=== PATIENT | male | born 1990 | race Caucasian/White ===

== ENCOUNTER 2018-01-10 08:40 | Emergency (ER) | payer OTHER ==
[2018-01-10] MEDS ORDERED: SODIUM CHLORIDE 0.9% 1,000 ML IV STA (09:23)
--- NOTE | 2018-01-10 09:47 | ED ---
Dizziness HPI - General Chief Complaint: Dizziness Stated Complaint: DIZZINESS, POSS HYPERTENSION Time Seen by Provider: 01/10/18 09:05 Source: patient, RN notes reviewed, old records reviewed Mode of arrival: wheelchair Limitations: no limitations - History of Present Illness Initial Comments: 19-year-old male presents emergency Department due to complaint of lightheaded feeling while he was at work today. He was concerned that maybe his blood pressure was elevated. He denies any headache. Denies any neck pain. No head injury or trauma. He reports no dizziness. Patient has had no chest pain or shortness of breath. No nausea or vomiting or diarrhea. Reports that she's been having some intermittent episodes with this lightheadedness. States his brain feels somewhat foggy. Denies any fevers or chills. - Related Data Home Medications Medication Instructions Recorded Confirmed No Known Home Medications [No 01/10/18 01/10/18 Known Home Medications] Allergies Allergy/AdvReac Type Severity Reaction Status Date / Time No Known Allergies Allergy Verified 01/10/18 09:09 Review of Systems ROS Statement: Those systems with pertinent positive or pertinent negative responses have been documented in the HPI. ROS Other: All systems not noted in ROS Statement are negative. Past Medical History Past Medical History: No Reported History History of Any Multi-Drug Resistant Organisms: None Reported Past Surgical History: No Surgical Hx Reported Past Psychological History: No Psychological Hx Reported Smoking Status: Never smoker Past Alcohol Use History: None Reported Past Drug Use History: None Reported General Exam - General Exam Comments Initial Comments: 27-year-old male. Alert and oriented. No acute distress. Limitations: no limitations General appearance: alert, in no apparent distress Head exam: Present: atraumatic, normocephalic, normal inspection Eye exam: Present: normal appearance, PERRL, EOMI. Absent: scleral icterus, conjunctival injection, periorbital swelling ENT exam: Present: normal exam, mucous membranes moist Neck exam: Present: normal inspection. Absent: tenderness, meningismus, lymphadenopathy Respiratory exam: Present: normal lung sounds bilaterally. Absent: respiratory distress, wheezes, rales, rhonchi, stridor Cardiovascular Exam: Present: regular rate, normal rhythm, normal heart sounds. Absent: systolic murmur, diastolic murmur, rubs, gallop, clicks GI/Abdominal exam: Present: soft, normal bowel sounds. Absent: distended, tenderness, guarding, rebound, rigid Extremities exam: Present: normal inspection, full ROM, normal capillary refill. Absent: tenderness, pedal edema, joint swelling, calf tenderness Back exam: Present: normal inspection Neurological exam: Present: alert, oriented X3, CN II-XII intact Psychiatric exam: Present: normal affect, normal mood Skin exam: Present: warm, dry, intact, normal color. Absent: rash Course Vital Signs 01/10/18 08:47 Temperature 98.2 F Pulse Rate 83 Respiratory 20 Rate Blood Pressure 139/76 O2 Sat by Pulse 100 Oximetry Medical Decision Making - Lab Data Result diagrams: 01/10/18 09:43 01/10/18 09:43 Lab Results 01/10/18 01/10/18 01/10/18 Range/Units 09:43 09:43 09:43 WBC 5.1 (3.8-10.6) k/uL RBC 5.04 (4.30-5.90) m/uL Hgb 15.3 (13.0-17.5) gm/dL Hct 44.0 (39.0-53.0) % MCV 87.4 (80.0-100.0) fL MCH 30.3 (25.0-35.0) pg MCHC 34.7 (31.0-37.0) g/dL RDW 12.5 (11.5-15.5) % Plt Count 326 (150-450) k/uL Neutrophils % 70 % Lymphocytes % 20 % Monocytes % 6 % Eosinophils % 2 % Basophils % 1 % Neutrophils # 3.6 (1.3-7.7) k/uL Lymphocytes # 1.0 (1.0-4.8) k/uL Monocytes # 0.3 (0-1.0) k/uL Eosinophils # 0.1 (0-0.7) k/uL Basophils # 0.0 (0-0.2) k/uL Sodium 143 (137-145) mmol/L Potassium 4.3 (3.5-5.1) mmol/L Chloride 103 (98-107) mmol/L Carbon Dioxide 28 (22-30) mmol/L Anion Gap 12 mmol/L BUN 16 (9-20) mg/dL Creatinine 0.81 (0.66-1.25) mg/dL Est GFR (CKD-EPI)AfAm >90 (>60 ml/min/1.73 sqM) Est GFR (CKD-EPI)NonAf >90 (>60 ml/min/1.73 sqM) Glucose 94 (74-99) mg/dL Calcium 9.4 (8.4-10.2) mg/dL Total Bilirubin 0.8 (0.2-1.3) mg/dL AST 33 (17-59) U/L ALT 57 (21-72) U/L Alkaline Phosphatase 75 (38-126) U/L Troponin I <0.012 (0.000-0.034) ng/mL Total Protein 7.0 (6.3-8.2) g/dL Albumin 4.5 (3.5-5.0) g/dL Urine Color Urine Appearance (Clear) Urine pH (5.0-8.0) Ur Specific Clements (1.001-1.035) Urine Protein (Negative) Urine Glucose (UA) (Negative) Urine Ketones (Negative) Urine Blood (Negative) Urine Nitrite (Negative) Urine Bilirubin (Negative) Urine Urobilinogen (<2.0) mg/dL Ur Leukocyte Esterase (Negative) 01/10/18 Range/Units 10:32 WBC (3.8-10.6) k/uL RBC (4.30-5.90) m/uL Hgb (13.0-17.5) gm/dL Hct (39.0-53.0) % MCV (80.0-100.0) fL MCH (25.0-35.0) pg MCHC (31.0-37.0) g/dL RDW (11.5-15.5) % Plt Count (150-450) k/uL Neutrophils % % Lymphocytes % % Monocytes % % Eosinophils % % Basophils % % Neutrophils # (1.3-7.7) k/uL Lymphocytes # (1.0-4.8) k/uL Monocytes # (0-1.0) k/uL Eosinophils # (0-0.7) k/uL Basophils # (0-0.2) k/uL Sodium (137-145) mmol/L Potassium (3.5-5.1) mmol/L Chloride (98-107) mmol/L Carbon Dioxide (22-30) mmol/L Anion Gap mmol/L BUN (9-20) mg/dL Creatinine (0.66-1.25) mg/dL Est GFR (CKD-EPI)AfAm (>60 ml/min/1.73 sqM) Est GFR (CKD-EPI)NonAf (>60 ml/min/1.73 sqM) Glucose (74-99) mg/dL Calcium (8.4-10.2) mg/dL Total Bilirubin (0.2-1.3) mg/dL AST (17-59) U/L ALT (21-72) U/L Alkaline Phosphatase (38-126) U/L Troponin I (0.000-0.034) ng/mL Total Protein (6.3-8.2) g/dL Albumin (3.5-5.0) g/dL Urine Color Yellow Urine Appearance Clear (Clear) Urine pH 7.5 (5.0-8.0) Ur Specific Clements 1.022 (1.001-1.035) Urine Protein Negative (Negative) Urine Glucose (UA) Negative (Negative) Urine Ketones Negative (Negative) Urine Blood Negative (Negative) Urine Nitrite Negative (Negative) Urine Bilirubin Negative (Negative) Urine Urobilinogen <2.0 (<2.0) mg/dL Ur Leukocyte Esterase Negative (Negative) 01/10/18 11:13 EKG performed at 952 shows normal sinus rhythm, normal EKG noted. Ventricular rate of 71 bpm. WA intervals 182. QRS duration 88. QT QTc is 370/410. Disposition Clinical Impression: Light-headed feeling Disposition: HOME SELF-CARE Condition: Good Instructions: Dizziness (ED) Additional Instructions: Patient has a follow-up with her primary care provider. Return to the emergency department if any alarming signs or symptoms occur. Is patient prescribed a controlled substance at d/c from ED?: No When asked, does pt state using other controlled substances?: No If prescribed controlled substance>3 days was MAPS reviewed?: No If opioid is for acute pain is fill amount 7 days or less?: No Referrals: Ericka Currie DO [Primary Care Provider] - 1-2 days Time of Disposition: 11:25
[2018-01-10 09:53] LABS: Basophils % (A) 1 %; Eosinophils # (A) 0.1 k/uL (0-0.7); Eosinophils % (A) 2 %; HGB 15.3 gm/dL (13.0-17.5); Lymphocytes % (A) 20 %; MCH 30.3 pg (25.0-35.0); MCHC 34.7 g/dL (31.0-37.0); MCV 87.4 fL (80.0-100.0); Mean Platelet Volume 6.4; Monocytes # (A) 0.3 k/uL (0-1.0); Monocytes % (A) 6 %; Neutrophils # (A) 3.6 k/uL (1.3-7.7); Neutrophils % (A) 70 %; Platelet Count 326 k/uL (150-450); RBC 5.04 m/uL (4.30-5.90); RDW 12.5 % (11.5-15.5); WBC 5.1 k/uL (3.8-10.6)
[2018-01-10 10:02] LABS: ALT 57 U/L (21-72); AST 33 U/L (17-59); Albumin 4.5 g/dL (3.5-5.0); Alkaline Phosphatase 75 U/L (38-126); Anion Gap 12 mmol/L; Blood Urea Nitrogen 16 mg/dL (9-20); Calcium 9.4 mg/dL (8.4-10.2); Carbon Dioxide 28 mmol/L (22-30); Chloride 103 mmol/L (98-107); Glucose 94 mg/dL (74-99); Potassium 4.3 mmol/L (3.5-5.1); Sodium 143 mmol/L (137-145); Total Bilirubin 0.8 mg/dL (0.2-1.3)
[2018-01-10 10:45] LABS: Appearance,Urine Clear (Clear); Bilirubin,Urine Negative (Negative); Blood,Urine Negative (Negative); Color,Urine Yellow; Glucose,Urine (UA) Negative (Negative); Ketones,Urine Negative (Negative); Leukocyte Esterase,Urine Negative (Negative); Nitrite,Urine Negative (Negative); PH, Urine 7.5 (5.0-8.0); Protein,Urine Negative (Negative); Specific Gravity,Urine 1.022 (1.001-1.035); Urobilinogen,Urine <2.0 mg/dL (<2.0)
[2018-01-10 11:39] VITALS: BP 138/76; PULSE 78; RESP 18; TEMP 98.5
== END 2018-01-10 11:39 | disposition home or self-care (01) ==
LOC: EC 08:40
DX: R42 Dizziness and giddiness (principal)
CPT/HCPCS: 36415; 80053; 81003; 84484; 85025; 93005; 96360; 99284

== ENCOUNTER 2018-01-23 18:11 | Emergency (ER) | payer OTHER ==
[2018-01-23] MEDS ORDERED: SODIUM CHLORIDE 0.9% 1,000 ML IV ONE (18:45)
--- NOTE | 2018-01-23 18:49 | ED ---
General Adult HPI - General Chief complaint: Skin/Abscess/Foreign Body Stated complaint: Facial numbness Time Seen by Provider: 01/23/18 18:27 Source: patient Mode of arrival: ambulatory Limitations: no limitations - History of Present Illness Initial comments: 27-year-old male patient presents to the emergency department today for evaluation of tingling to the dorsal aspect of left forearm and the left side of the face. Patient states that this started a few hours ago at work. Patient states that it has persisted. Patient states the tingling sensation and is less than it was never started. He denies any numbness or weakness. Denies any headache, dizziness, blurred vision, or double vision. Denies any history of similar symptoms. He denies any neck pain or stiffness. Denies any fevers or chills. States that he was recently ill with gastrointestinal symptoms his doctor told him is related to a virus. Patient states he has taken Benadryl both this morning and this afternoon due to some generalized itching. Patient denies any rash. Patient denies any other past medical history or use of medications. Patient denies any recent shortness breath, chest pain, abdominal pain, nausea, vomiting, diarrhea, constipation, back pain , hematuria, dysuria, urinary urgency, urinary frequency, or any other complaints. - Related Data Home Medications Medication Instructions Recorded Confirmed Aspirin EC [Ecotrin] 325 mg PO DAILY PRN 01/23/18 01/23/18 Multivitamins, Thera [Multivitamin 1 tab PO DAILY 01/23/18 01/23/18 (formulary)] diphenhydrAMINE HCL [Benadryl] 50 mg PO BID PRN 01/23/18 01/23/18 Allergies Allergy/AdvReac Type Severity Reaction Status Date / Time No Known Allergies Allergy Verified 01/23/18 18:30 Review of Systems ROS Statement: Those systems with pertinent positive or pertinent negative responses have been documented in the HPI. ROS Other: All systems not noted in ROS Statement are negative. Past Medical History Past Medical History: No Reported History History of Any Multi-Drug Resistant Organisms: None Reported Past Surgical History: No Surgical Hx Reported Past Psychological History: No Psychological Hx Reported Smoking Status: Never smoker Past Alcohol Use History: None Reported Past Drug Use History: None Reported General Exam Limitations: no limitations General appearance: alert, in no apparent distress, other (This is a well- developed, well-nourished adult male patient in no acute distress. Vital signs upon presentation are temperature 98.5F, pulse 79, respirations 16, blood pressure 135/78, pulse ox 98% on room air.) Eye exam: Present: normal appearance, PERRL, EOMI. Absent: scleral icterus, conjunctival injection, periorbital swelling ENT exam: Present: normal exam, normal oropharynx, mucous membranes moist Respiratory exam: Present: normal lung sounds bilaterally. Absent: respiratory distress, wheezes, rales, rhonchi, stridor Cardiovascular Exam: Present: regular rate, normal rhythm, normal heart sounds. Absent: systolic murmur, diastolic murmur, rubs, gallop, clicks GI/Abdominal exam: Present: soft, normal bowel sounds. Absent: distended, tenderness, guarding, rebound, rigid Neurological exam: Present: alert, oriented X3, CN II-XII intact Expanded Speech: Present: fluid speech Cranial nerves: EOM's Intact: Normal, Facial Sensation: Normal, Facial Palsy with Forehead Movement: Normal, Facial Palsy without Forehead Movement: Normal Motor strength exam: RUE: 5, LUE: 5, RLE: 5, LLE: 5 Eye Response: (4) open spontaneously Motor Response: (6) obeys commands Verbal Response: (5) oriented Macario Total: 15 Psychiatric exam: Present: normal affect, normal mood Skin exam: Present: warm, dry, intact, normal color. Absent: rash Course Vital Signs 01/23/18 01/23/18 18:21 21:00 Temperature 98.5 F 98.3 F Pulse Rate 79 77 Respiratory 16 18 Rate Blood Pressure 135/78 133/85 O2 Sat by Pulse 98 97 Oximetry Medical Decision Making - Medical Decision Making 27-year-old male patient presented to the emergency department today for evaluation of tingling to the dorsal aspect of the forearm and the left side of his face. Physical examination is unremarkable. Patient is neurologically intact. Labs reviewed and were unremarkable. Thyroid was normal. Electrolytes are normal. I did discuss findings and results with the patient. Upon reevaluation patient states that his symptoms have improved. He will be discharged home to follow-up with his primary care physician in one to 2 days. Return parameters discussed in detail. He verbalizes understanding and agrees with this plan. - Lab Data Result diagrams: 01/23/18 19:14 01/23/18 19:14 Lab Results 01/23/18 01/23/18 Range/Units 19:14 19:14 WBC 6.4 (3.8-10.6) k/uL RBC 4.81 (4.30-5.90) m/uL Hgb 14.5 (13.0-17.5) gm/dL Hct 41.8 (39.0-53.0) % MCV 87.0 (80.0-100.0) fL MCH 30.2 (25.0-35.0) pg MCHC 34.7 (31.0-37.0) g/dL RDW 12.5 (11.5-15.5) % Plt Count 328 (150-450) k/uL Neutrophils % 63 % Lymphocytes % 26 % Monocytes % 8 % Eosinophils % 1 % Basophils % 0 % Neutrophils # 4.0 (1.3-7.7) k/uL Lymphocytes # 1.7 (1.0-4.8) k/uL Monocytes # 0.5 (0-1.0) k/uL Eosinophils # 0.1 (0-0.7) k/uL Basophils # 0.0 (0-0.2) k/uL Sodium 141 (137-145) mmol/L Potassium 4.2 (3.5-5.1) mmol/L Chloride 103 (98-107) mmol/L Carbon Dioxide 24 (22-30) mmol/L Anion Gap 14 mmol/L BUN 14 (9-20) mg/dL Creatinine 0.79 (0.66-1.25) mg/dL Est GFR (CKD-EPI)AfAm >90 (>60 ml/min/1.73 sqM) Est GFR (CKD-EPI)NonAf >90 (>60 ml/min/1.73 sqM) Glucose 81 (74-99) mg/dL Calcium 9.7 (8.4-10.2) mg/dL Magnesium 2.0 (1.6-2.3) mg/dL Total Bilirubin 0.6 (0.2-1.3) mg/dL AST 31 (17-59) U/L ALT 50 (21-72) U/L Alkaline Phosphatase 69 (38-126) U/L Total Protein 7.1 (6.3-8.2) g/dL Albumin 4.7 (3.5-5.0) g/dL TSH 0.908 (0.465-4.680) mIU/L Disposition Clinical Impression: Paresthesia Disposition: HOME SELF-CARE Condition: Good Instructions: Paresthesia (ED) Additional Instructions: Follow-up with your primary care physician for recheck in 1-2 days. Return here immediately for any new, worsening, or concerning symptoms. Is patient prescribed a controlled substance at d/c from ED?: No Referrals: Ericka Currie DO [Primary Care Provider] - 1-2 days Time of Disposition: 20:45
[2018-01-23 19:28] LABS: Basophils % (A) 0 %; Eosinophils # (A) 0.1 k/uL (0-0.7); Eosinophils % (A) 1 %; HCT 41.8 % (39.0-53.0); HGB 14.5 gm/dL (13.0-17.5); Lymphocytes # (A) 1.7 k/uL (1.0-4.8); Lymphocytes % (A) 26 %; MCH 30.2 pg (25.0-35.0); MCHC 34.7 g/dL (31.0-37.0); Mean Platelet Volume 6.9; Monocytes # (A) 0.5 k/uL (0-1.0); Monocytes % (A) 8 %; Neutrophils % (A) 63 %; Platelet Count 328 k/uL (150-450); RBC 4.81 m/uL (4.30-5.90); RDW 12.5 % (11.5-15.5); WBC 6.4 k/uL (3.8-10.6)
[2018-01-23 19:43] LABS: ALT 50 U/L (21-72); AST 31 U/L (17-59); Albumin 4.7 g/dL (3.5-5.0); Alkaline Phosphatase 69 U/L (38-126); Anion Gap 14 mmol/L; Blood Urea Nitrogen 14 mg/dL (9-20); Calcium 9.7 mg/dL (8.4-10.2); Carbon Dioxide 24 mmol/L (22-30); Chloride 103 mmol/L (98-107); Glucose 81 mg/dL (74-99); Potassium 4.2 mmol/L (3.5-5.1); Sodium 141 mmol/L (137-145); Total Bilirubin 0.6 mg/dL (0.2-1.3); Total Protein 7.1 g/dL (6.3-8.2)
[2018-01-23 21:11] VITALS: BP 133/85; PULSE 77; RESP 18; TEMP 98.3
== END 2018-01-23 21:00 | disposition home or self-care (01) ==
LOC: EC 18:11
DX: R20.2 Paresthesia of skin (principal)
CPT/HCPCS: 36415; 80053; 83735; 84443; 85025; 96360; 99284

== ENCOUNTER 2018-01-25 00:27 | Emergency (ER) | payer OTHER ==
[2018-01-25 00:33] VITALS: RESP 16
[2018-01-25] MEDS ORDERED: LORazepam 1 MG TAB PO STA (01:35)
--- NOTE | 2018-01-25 01:38 | ED ---
General Adult HPI - General Chief complaint: Extremity Problem,Nontraumatic Stated complaint: Face and arm numbness Time Seen by Provider: 01/25/18 00:52 Source: patient, RN notes reviewed Mode of arrival: ambulatory Limitations: no limitations - History of Present Illness Initial comments: Patient is a pleasant 27-year-old male presenting to the emergency Department with complaints of paresthesias. Symptoms have been occurring for several days. Paresthesias involve the left side of the face and left arm. Patient does admit to having significant increased stress recently. Patient has increased stress at work. Patient requests to have a large amount of time off work. Patient states he felt like his note case were somewhat enlarged earlier today. No weakness or confusion. No headache. - Related Data Home Medications Medication Instructions Recorded Confirmed Aspirin EC [Ecotrin] 325 mg PO DAILY PRN 01/23/18 01/23/18 Multivitamins, Thera [Multivitamin 1 tab PO DAILY 01/23/18 01/23/18 (formulary)] diphenhydrAMINE HCL [Benadryl] 50 mg PO BID PRN 01/23/18 01/23/18 Allergies Allergy/AdvReac Type Severity Reaction Status Date / Time No Known Allergies Allergy Verified 01/25/18 00:33 Review of Systems ROS Statement: Those systems with pertinent positive or pertinent negative responses have been documented in the HPI. ROS Other: All systems not noted in ROS Statement are negative. Constitutional: Denies: fever Eyes: Denies: eye pain ENT: Denies: ear pain Respiratory: Denies: cough Cardiovascular: Denies: chest pain Endocrine: Denies: fatigue Gastrointestinal: Denies: abdominal pain Genitourinary: Denies: dysuria Musculoskeletal: Denies: back pain Skin: Denies: rash Neurological: Reports: weakness, paresthesias Past Medical History Past Medical History: No Reported History History of Any Multi-Drug Resistant Organisms: None Reported Past Surgical History: No Surgical Hx Reported Past Psychological History: No Psychological Hx Reported Smoking Status: Never smoker Past Alcohol Use History: None Reported Past Drug Use History: None Reported General Exam Limitations: no limitations General appearance: alert, in no apparent distress Head exam: Present: atraumatic Eye exam: Present: normal appearance, PERRL, EOMI. Absent: nystagmus ENT exam: Present: normal oropharynx Neck exam: Present: normal inspection Respiratory exam: Present: normal lung sounds bilaterally Cardiovascular Exam: Present: regular rate, normal rhythm GI/Abdominal exam: Present: soft. Absent: tenderness Extremities exam: Present: normal inspection, full ROM. Absent: tenderness Neurological exam: Present: alert, CN II-XII intact. Absent: motor sensory deficit Expanded Neurological exam: Present: protecting the airway Speech: Present: fluid speech Cranial nerves: EOM's Intact: Normal, Facial Sensation: Normal Sensory exam: Upper Extremity Light Touch: Normal, Lower Extremity Light Touch: Normal Motor strength exam: RUE: 5, LUE: 5, RLE: 5, LLE: 5 Eye Response: (4) open spontaneously Motor Response: (6) obeys commands Verbal Response: (5) oriented Psychiatric exam: Present: normal affect, normal mood Skin exam: Present: normal color Course Vital Signs 01/25/18 00:31 Temperature 98.4 F Pulse Rate 79 Respiratory 16 Rate Blood Pressure 138/83 O2 Sat by Pulse 98 Oximetry Medical Decision Making - Medical Decision Making Patient reevaluated and feels much better following Ativan. Patient updated on results and need for follow-up. - Radiology Data Radiology results: report reviewed (Computed tomography scan of the brain shows no acute process) Disposition Clinical Impression: Paresthesia Disposition: HOME SELF-CARE Condition: Stable Instructions: Paresthesia (ED) Additional Instructions: Please follow-up with primary care physician in the beginning of the week. Return for weakness, confusion, increased area of involvement, worsening or changing symptoms or other concerns. Is patient prescribed a controlled substance at d/c from ED?: No Referrals: Ericka Currie DO [Primary Care Provider] - 1-2 days Time of Disposition: 02:54
--- NOTE | 2018-01-25 02:07 | CT ---
EXAMINATION TYPE: CT brain wo con DATE OF EXAM: 01/25/2018 COMPARISON: NONE HISTORY: Left face and arm numbness CT DLP: 1108.40 mGycm. Automated Exposure Control for Dose Reduction was Utilized. TECHNIQUE: CT scan of the head is performed without contrast. FINDINGS: Ventricles of normal size. There is no mass effect nor midline shift. There is no sign of intracranial hemorrhage. Calvarium is intact. IMPRESSION: Negative CT scan of the brain.
[2018-01-25 03:03] VITALS: BP 129/73; PULSE 71; TEMP 97.9
== END 2018-01-25 03:03 | disposition home or self-care (01) ==
LOC: EC 00:27
DX: R20.2 Paresthesia of skin (principal); F43.9 Reaction to severe stress, unspecified
CPT/HCPCS: 70450; 99284

== ENCOUNTER → 2018-12-26 | Outpatient (CLI) | payer BC ==
--- NOTE | 2018-12-26 10:33 | US ---
EXAMINATION TYPE: US abdomen complete DATE OF EXAM: 12/26/2018 COMPARISON: NONE CLINICAL HISTORY: R10.13 Epigastric pain. EXAM MEASUREMENTS: Liver Length: 16.4 cm Gallbladder Wall: 0.2 cm CBD: 0.3 cm Spleen: 10.7 cm Right Kidney: 11.8 x 3.8 x 4.3 cm Left Kidney: 11.9 x 5.5 x 4.8 cm Pancreas: Obscured by bowel gas Liver: Coarse, heterogeneous echotexture Gallbladder: wnl Evidence for sonographic Rojas's sign: No CBD: wnl as visualized, obscured by bowel gas Spleen: wnl Right Kidney: No hydronephrosis or masses seen Left Kidney: No hydronephrosis or masses seen. Lobular contour Upper IVC: wnl Abd Aorta: wnl The intrahepatic portion of the IVC and proximal abdominal aorta are within normal limits. There is no evidence of cholelithiasis. Common bile duct is unremarkable. The visualized portions of the priest creas are homogenous. The spleen is unremarkable. Kidneys are symmetric and free of hydronephrosis. No renal lesions are seen. IMPRESSION: 1. Fatty liver versus diffuse hepatocellular disease.
== END ==
LOC: RADUSWWP 09:26
PROVIDERS: ATTEND Nurse Practitioner Family
DX: K76.0 Fatty (change of) liver, not elsewhere classified (principal)
CPT/HCPCS: 76700

== ENCOUNTER 2020-05-18 22:36 | Emergency (ER) | payer BC ==
--- NOTE | 2020-05-18 22:55 | ED ---
Chest Pain HPI - General Chief Complaint: Chest Pain Stated Complaint: Chest Pain Time Seen by Provider: 05/18/20 22:44 Source: patient Mode of arrival: ambulatory Limitations: no limitations - History of Present Illness Initial Comments: This patient is a 29-year-old man who presents to be evaluated for chest pain. He states that it had come on around 9:30 while he was trying to go to bed. He states that it's at the left sternal border. He also has some tingling of his left arm. He thinks that that may be related to anxiety. The patient describes pain as dull. He has not noted worsening or relieving factors. No associated symptoms. MD Complaint: chest pain Onset/Timin -: hour(s) Onset: during rest Pain Location: left chest Pain Radiation: LUE Severity: mild Quality: dull Consistency: constant, now resolved (Partially resolved) Improves With: nothing Worsens With: nothing Treatments Prior to Arrival: none - Related Data Home Medications Medication Instructions Recorded Confirmed Aspirin EC [Ecotrin] 325 mg PO DAILY PRN 01/23/18 01/23/18 Multivitamins, Thera [Multivitamin 1 tab PO DAILY 01/23/18 01/23/18 (formulary)] diphenhydrAMINE HCL [Benadryl] 50 mg PO BID PRN 01/23/18 01/23/18 Allergies Allergy/AdvReac Type Severity Reaction Status Date / Time No Known Allergies Allergy Verified 05/18/20 22:37 Review of Systems ROS Statement: Those systems with pertinent positive or pertinent negative responses have been documented in the HPI. ROS Other: All systems not noted in ROS Statement are negative. Constitutional: Denies: fever, chills Respiratory: Denies: cough, dyspnea Cardiovascular: Reports: as per HPI, chest pain. Denies: palpitations, orthopnea, edema, syncope Gastrointestinal: Denies: abdominal pain, nausea, vomiting, diarrhea Genitourinary: Denies: dysuria, frequency, hematuria Musculoskeletal: Denies: back pain Skin: Denies: rash Neurological: Denies: headache, weakness, numbness EKG Findings - EKG Results: EKG: interpreted by ANUM MCGRAW, sinus rhythm (Rate 77 bpm), normal axis, normal QRS, normal ST/T, no acute changes Past Medical History Past Medical History: No Reported History History of Any Multi-Drug Resistant Organisms: None Reported Past Surgical History: No Surgical Hx Reported Past Psychological History: Anxiety, Depression Smoking Status: Never smoker Past Alcohol Use History: Occasional Past Drug Use History: None Reported General Exam Limitations: no limitations General appearance: alert, in no apparent distress Head exam: Present: atraumatic, normocephalic Eye exam: Present: normal appearance. Absent: scleral icterus, conjunctival injection Neck exam: Present: normal inspection, full ROM Respiratory exam: Present: normal lung sounds bilaterally. Absent: respiratory distress, wheezes, rales, rhonchi, stridor, chest wall tenderness Cardiovascular Exam: Present: regular rate, normal rhythm, normal heart sounds. Absent: systolic murmur, diastolic murmur, rubs, gallop GI/Abdominal exam: Present: soft. Absent: distended, tenderness, guarding, rebound, rigid, mass Extremities exam: Present: normal inspection, normal capillary refill. Absent: pedal edema, calf tenderness Back exam: Present: normal inspection. Absent: CVA tenderness (R), CVA tenderness (L) Neurological exam: Present: alert Skin exam: Present: warm, dry, intact, normal color. Absent: rash Course Vital Signs 05/18/20 05/18/20 22:37 23:45 Temperature 98.6 F Pulse Rate 78 73 Respiratory 16 18 Rate Blood Pressure 144/99 137/91 O2 Sat by Pulse 100 99 Oximetry Disposition Clinical Impression: Chest pain Disposition: HOME SELF-CARE Condition: Good Instructions (If sedation given, give patient instructions): Chest Pain (ED) Is patient prescribed a controlled substance at d/c from ED?: No Referrals: Ericka Currie DO [Primary Care Provider] - 1-2 days
[2020-05-18 23:18] LABS: Basophils # (A) 0.1 k/uL (0-0.2); Basophils % (A) 1 %; Eosinophils # (A) 0.2 k/uL (0-0.7); Eosinophils % (A) 2 %; HCT 46.4 % (39.0-53.0); HGB 15.4 gm/dL (13.0-17.5); Lymphocytes # (A) 2.2 k/uL (1.0-4.8); Lymphocytes % (A) 24 %; MCH 29.3 pg (25.0-35.0); MCHC 33.2 g/dL (31.0-37.0); MCV 88.2 fL (80.0-100.0); Mean Platelet Volume 6.9; Monocytes # (A) 0.8 k/uL (0-1.0); Monocytes % (A) 8 %; Neutrophils % (A) 64 %; Platelet Count 392 k/uL (150-450); RBC 5.26 m/uL (4.30-5.90); RDW 12.5 % (11.5-15.5); WBC 9.3 k/uL (3.8-10.6)
[2020-05-18 23:27] LABS: ALT 75 U/L (4-49); AST 49 U/L (17-59); African American GFR (CKD) >90 (>60 ml/min/1.73 sqM); Albumin 4.7 g/dL (3.5-5.0); Alkaline Phosphatase 78 U/L (38-126); Anion Gap 9 mmol/L; Blood Urea Nitrogen 17 mg/dL (9-20); Calcium 9.5 mg/dL (8.4-10.2); Carbon Dioxide 23 mmol/L (22-30); Chloride 107 mmol/L (98-107); Glucose 97 mg/dL (74-99); Magnesium 1.8 mg/dL (1.6-2.3); Non-African American GFR(CKD) >90 (>60 ml/min/1.73 sqM); Potassium 4.4 mmol/L (3.5-5.1); Sodium 139 mmol/L (137-145); Total Bilirubin 0.5 mg/dL (0.2-1.3); Total Protein 7.5 g/dL (6.3-8.2)
[2020-05-18 23:30] LABS: INR 1.1 (<1.2); Partial Thromboplastin Time 24.8 sec (22.0-30.0); Prothrombin Time 11.1 sec (9.0-12.0)
--- NOTE | 2020-05-18 23:38 | XR ---
EXAMINATION TYPE: XR chest 2V DATE OF EXAM: 05/18/2020 COMPARISON: NONE HISTORY: Chest pain TECHNIQUE: 2 views FINDINGS: Heart and mediastinum are normal. Lungs are clear. Diaphragm is normal. Bony thorax appears normal. There are chest leads. IMPRESSION: Normal chest.
[2020-05-18 23:45] VITALS: RESP 18
[2020-05-19 00:22] VITALS: BP 144/92; PULSE 68; TEMP 98
== END 2020-05-19 00:22 | disposition home or self-care (01) ==
LOC: EC 22:36
DX: R07.9 Chest pain, unspecified (principal); R20.2 Paresthesia of skin
CPT/HCPCS: 36415; 71046; 80053; 83735; 84484; 85025; 85610; 85730; 93005; 99285

== ENCOUNTER 2020-10-13 09:23 | Emergency (ER) | payer BC, OTHER ==
[2020-10-13 09:28] VITALS: RESP 18
[2020-10-13] MEDS ORDERED: DIPH,PERTUS(ACELL)TETVAC-LF 0.5 ML VIAL IM ONE (09:48)
[2020-10-13] MEDS ORDERED: LIDOCAINE 1% INJ 10MG/ML (20 ML MDV) SQ STA (09:48)
[2020-10-13] MEDS ORDERED: ceFAZolin 1,000 MG VIAL (IM USE) IM STA (10:17)
--- NOTE | 2020-10-13 10:23 | XR ---
EXAMINATION TYPE: XR finger LT DATE OF EXAM: 10/13/2020 COMPARISON: NONE HISTORY: Laceration TECHNIQUE: Three views are submitted. FINDINGS: There is metallic density adjacent to the proximal phalanx fourth digit suspicious for multiple forei gn body. Soft tissue injury suspected. No acute fracture. No dislocation. IMPRESSION: 1. Suspected multiple radiopaque foreign bodies along the dorsal surface of the proximal phalanx. 2. No acute fracture.
[2020-10-13] MEDS ORDERED: CEPHALEXIN 500MG STARTER PACK 4 CAP BTL PO STA (11:48)
--- NOTE | 2020-10-13 11:50 | ED ---
General Adult HPI - General Chief complaint: Extremity Injury, Upper Stated complaint: [facility] - Finger Lac Time Seen by Provider: 10/13/20 09:32 Source: patient Mode of arrival: ambulatory Limitations: no limitations - History of Present Illness Initial comments: 29-year-old male presents to the emergency room for a chief complaint of finger laceration. Patient was using a saw at work today when he cut his left finger. He went to [facility] and they were concerned he may have ruptured his tendon. Patient denies cold he moving his finger. Patient is not up-to-date on tetanus. He denies any other injuries. Denies loss of sensation in the left second digit.Patient has no other complaints at this time including shortness of breath, chest pain, abdominal pain, nausea or vomiting, headache, or visual changes. - Related Data Home Medications Medication Instructions Recorded Confirmed Multivitamins, Thera [Multivitamin 1 tab PO DAILY 01/23/18 10/13/20 (formulary)] Cholecalciferol [Vitamin D3 (25 25 mcg PO DAILY 10/13/20 10/13/20 Mcg = 1000 Iu)] Omeprazole 20 mg PO DAILY 10/13/20 10/13/20 Previous Rx's Medication Instructions Recorded Cephalexin [Keflex] 500 mg PO Q6HR 5 Days #20 cap 10/13/20 Allergies Allergy/AdvReac Type Severity Reaction Status Date / Time No Known Allergies Allergy Verified 10/13/20 10:38 Review of Systems ROS Statement: Those systems with pertinent positive or pertinent negative responses have been documented in the HPI. ROS Other: All systems not noted in ROS Statement are negative. Past Medical History Past Medical History: GERD/Reflux History of Any Multi-Drug Resistant Organisms: None Reported Past Surgical History: No Surgical Hx Reported Past Psychological History: Anxiety, Depression Smoking Status: Never smoker Past Alcohol Use History: Occasional Past Drug Use History: None Reported General Exam Limitations: no limitations General appearance: alert, in no apparent distress Head exam: Present: atraumatic Eye exam: Present: normal appearance, PERRL, EOMI. Absent: scleral icterus, conjunctival injection ENT exam: Present: normal exam, mucous membranes moist Neck exam: Present: normal inspection, full ROM. Absent: tenderness Respiratory exam: Absent: normal lung sounds bilaterally, respiratory distress, wheezes Cardiovascular Exam: Present: regular rate, normal rhythm, normal heart sounds Extremities exam: Present: full ROM (Full range of motion of the left second digit including extension at the MCP, PIP, and DIP joints.), normal capillary refill (Capillary refill less than 2 seconds left second digit.), other (Patient has a 2 cm laceration noted over the dorsal left second digit just proximal to the PIP joint. There is a partial tendon rupture noted. Sensation intact left second digit. No obvious foreign body). Absent: joint swelling Course Vital Signs 10/13/20 09:24 Temperature 98.4 F Pulse Rate 83 Respiratory 18 Rate Blood Pressure 173/84 O2 Sat by Pulse 99 Oximetry Procedures - Laceration Laceration #1 Consent Obtained: verbal consent Indication: laceration Site: hand Size (cm): 2 Depth: simple, single layer Anesthetic Used: lidocaine 1% Anesthesia Technique: local infiltration Amount (mls): 3 Pre-repair: wound explored, irrigated extensively (With a liter of sterile water followed by saline pressure irrigation) Type of Sutures: nylon Size of Sutures: 5-0 Number of Sutures: 4 Technique: simple, interrupted Patient Tolerated Procedure: well, no complications Medical Decision Making - Medical Decision Making Laceration to the left second finger just proximal to the dorsum of the PIP joint. This does appear to involve a partial tendon rupture. X-ray was obtained which showed no fracture however there are suspected multiple radiopaque foreign bodies. I did attempt to clean the wound thoroughly with irrigation and scrubbing. I sutured the wound with 4 simple opted sutures. I discussed this case with Leesa from [facility], recommends closing the wound, splinting finger, starting on antibiotics, and having him follow up with orthopedics tomorrow. He may need surgery next week. I discussed strict return parameters including those for infection. Disposition Clinical Impression: Laceration, Tendon laceration Disposition: HOME SELF-CARE Condition: Good Instructions (If sedation given, give patient instructions): Finger Laceration (ED), Tendon Laceration (ED) Additional Instructions: Take antibiotics as directed. Please keep area clean. Monitor for signs of infection such as spreading or streaking redness, drainage, or fever return if these occur. Return if you have any other worsening symptoms. Otherwise make sure to call orthopedics today as they want to see you in the office tomorrow. Return to the emergency room for any worsening symptoms. Prescriptions: Cephalexin [Keflex] 500 mg PO Q6HR 5 Days #20 cap Is patient prescribed a controlled substance at d/c from ED?: No Referrals: Ericka Currie DO [Primary Care Provider] - 1-2 days Ady Pringle MD [STAFF PHYSICIAN] - 1-2 days Time of Disposition: 11:49
[2020-10-13 12:09] VITALS: BP 135/98; PULSE 75; TEMP 97.6
== END 2020-10-13 12:15 | disposition home or self-care (01) ==
LOC: EC 09:23
DX: S61.211A Laceration without foreign body of left index finger without damage to nail, initial encounter (principal); K21.9 Gastro-esophageal reflux disease without esophagitis; Z79.899 Other long term (current) drug therapy; Z23 Encounter for immunization; W26.8XXA Contact with other sharp object(s), not elsewhere classified, initial encounter; Y92.69 Other specified industrial and construction area as the place of occurrence of the external cause; Y99.0 Civilian activity done for income or pay
CPT/HCPCS: 73140; 90715; 99283; 12001; 96372; 90471; J0690; J2001

== ENCOUNTER 2022-05-02 02:21 | Emergency (ER) | payer BC ==
[2022-05-02 02:41] VITALS: BP 136/96; PULSE 84; RESP 20; TEMP 97.9
--- NOTE | 2022-05-02 03:22 | ED ---
General Adult HPI - General Chief complaint: Upper Respiratory Infection Stated complaint: SHAHRAM Time Seen by Provider: 05/02/22 02:47 Source: patient, RN notes reviewed, old records reviewed Mode of arrival: ambulatory Limitations: no limitations - History of Present Illness Initial comments: 31-year-old male presenting with congestion and postnasal and chest congestion is been present for 24 hours. No fever. No chest pain. Uncertain if she's been exposed to coronavirus. No vomiting or diarrhea. Patient has no prior history of asthma or heart disease. - Related Data Home Medications Medication Instructions Recorded Confirmed Multivitamins, Thera [Multivitamin 1 tab PO DAILY 01/23/18 10/13/20 (formulary)] Cholecalciferol [Vitamin D3 (25 25 mcg PO DAILY 10/13/20 10/13/20 Mcg = 1000 Iu)] Omeprazole 20 mg PO DAILY 10/13/20 10/13/20 Previous Rx's Medication Instructions Recorded Cephalexin [Keflex] 500 mg PO Q6HR 5 Days #20 cap 10/13/20 Allergies Allergy/AdvReac Type Severity Reaction Status Date / Time No Known Allergies Allergy Verified 05/02/22 02:38 Review of Systems ROS Statement: Those systems with pertinent positive or pertinent negative responses have been documented in the HPI. ROS Other: All systems not noted in ROS Statement are negative. Past Medical History Past Medical History: GERD/Reflux History of Any Multi-Drug Resistant Organisms: None Reported Past Surgical History: No Surgical Hx Reported Past Psychological History: Anxiety, Depression Smoking Status: Never smoker Past Alcohol Use History: Occasional Past Drug Use History: None Reported General Exam Limitations: no limitations General appearance: alert, in no apparent distress Head exam: Present: atraumatic, normocephalic Eye exam: Present: normal appearance, PERRL ENT exam: Present: other (Nasal congestion) Neck exam: Present: normal inspection. Absent: tenderness, meningismus Respiratory exam: Present: normal lung sounds bilaterally. Absent: respiratory distress, rhonchi Cardiovascular Exam: Present: regular rate, normal rhythm GI/Abdominal exam: Present: soft. Absent: distended Extremities exam: Present: normal inspection, normal capillary refill. Absent: pedal edema Neurological exam: Present: alert, oriented X3, CN II-XII intact. Absent: motor sensory deficit Psychiatric exam: Present: normal affect, normal mood Skin exam: Present: warm, dry, intact. Absent: cyanosis, diaphoretic Course Vital Signs 05/02/22 02:38 Temperature 97.9 F Pulse Rate 84 Respiratory 20 Rate Blood Pressure 136/96 O2 Sat by Pulse 98 Oximetry Medical Decision Making - Medical Decision Making Covid testing negative, chest x-ray clear no focal pneumonia. Patient reassured, will follow-up with his primary care physician. - Lab Data Lab Results 05/02/22 Range/Units 02:42 Coronavirus (PCR) Not Detected (Not Detectd) Disposition Clinical Impression: Acute upper respiratory infection Disposition: HOME SELF-CARE Condition: Good Instructions (If sedation given, give patient instructions): Upper Respiratory Infection (ED) Is patient prescribed a controlled substance at d/c from ED?: No Referrals: Ericka Currie DO [Primary Care Provider] - 1-2 days Time of Disposition: 03:46
--- NOTE | 2022-05-02 03:34 | XR ---
EXAMINATION TYPE: XR chest 2V DATE OF EXAM: 05/02/2022 COMPARISON: None HISTORY: Cough TECHNIQUE: FINDINGS: Heart and mediastinum are normal. Lungs are clear. Diaphragm is normal. Bony thorax appears normal. IMPRESSION: Normal chest.
== END 2022-05-02 03:55 | disposition home or self-care (01) ==
LOC: EC 02:21
DX: J06.9 Acute upper respiratory infection, unspecified (principal); K21.9 Gastro-esophageal reflux disease without esophagitis; Z20.822 Contact with and (suspected) exposure to COVID-19; Z79.899 Other long term (current) drug therapy
CPT/HCPCS: 71046; 87635; 99283

== ENCOUNTER 2023-09-04 18:27 | Emergency (ER) | payer BC ==
[2023-09-04 19:39] LABS: Basophils % (A) 0 %; Eosinophils # (A) 0.1 k/uL (0-0.7); Eosinophils % (A) 1 %; HGB 15.2 gm/dL (13.0-17.5); Lymphocytes # (A) 0.8 k/uL (1.0-4.8); Lymphocytes % (A) 10 %; MCH 30.7 pg (25.0-35.0); MCHC 34.6 g/dL (31.0-37.0); MCV 88.8 fL (80.0-100.0); Mean Platelet Volume 7.4; Monocytes % (A) 12 %; Neutrophils # (A) 6.3 k/uL (1.3-7.7); Neutrophils % (A) 74 %; Platelet Count 280 k/uL (150-450); RBC 4.96 m/uL (4.30-5.90); RDW 12.2 % (11.5-15.5); WBC 8.4 k/uL (3.8-10.6)
[2023-09-04 19:52] LABS: ALT 59 U/L (4-49); AST 42 U/L (17-59); African American GFR (CKD) 66 (>60 ml/min/1.73 sqM); Albumin 4.7 g/dL (3.5-5.0); Alkaline Phosphatase 105 U/L (38-126); Amylase 58 U/L (30-110); Anion Gap 12 mmol/L; Blood Urea Nitrogen 18 mg/dL (9-20); Calcium 9.6 mg/dL (8.4-10.2); Carbon Dioxide 24 mmol/L (22-30); Chloride 102 mmol/L (98-107); Glucose 91 mg/dL (74-99); Lipase 86 U/L (23-300); Non-African American GFR(CKD) 57 (>60 ml/min/1.73 sqM); Potassium 4.2 mmol/L (3.5-5.1); Sodium 138 mmol/L (137-145); Total Bilirubin 1.4 mg/dL (0.2-1.3); Total Protein 7.8 g/dL (6.3-8.2)
[2023-09-04 19:55] LABS: Appearance,Urine Clear (Clear); Bilirubin,Urine Negative (Negative); Blood,Urine Negative (Negative); Color,Urine Yellow; Glucose,Urine (UA) Negative (Negative); Ketones,Urine 3+ (Negative); Leukocyte Esterase,Urine Negative (Negative); Nitrite,Urine Negative (Negative); PH, Urine 5.5 (5.0-8.0); Protein,Urine Trace (Negative); Specific Gravity,Urine 1.028 (1.001-1.035)
--- NOTE | 2023-09-04 19:55 | ED ---
General Adult HPI - General Source: patient, RN notes reviewed Mode of arrival: ambulatory Limitations: no limitations <Latisha Paulson - Last Filed: 09/04/23 20:01> <Alfonso Ambrose - Last Filed: 09/05/23 00:08> - General Chief complaint: Abdominal Pain Stated complaint: Pain in side Time Seen by Provider: 09/04/23 19:56 - History of Present Illness Initial comments: 32 year old male presents to the emergency department for evaluation of left flank pain. He states that this started on Saturday and he was evaluated at [facility] for this and was told that he had a kidney stone. Patient followed up with urology, Dr. David, yesterday. Patient states that he is supposed to be scheduled for an ultrasound on outpatient basis. He reports that since his appointment this pain has gotten significantly worse even with the pain medications he was given. It is hoping for pain control at this time. D enies fever, chills. (Latisha Paulson) 32-year-old male presents to the ED with a chief complaint of flank pain. Patient states on Saturday he was seen for this at [facility] and was told he had a 3 mm left kidney stone. Followed up with Dr. David of urology yesterday and notes he has a follow up with him later this week. Since initial evaluation, reports pain has been uncontrolled with pain medications he has been taking her home causing presentation to the ED for further evaluation. States he has been taking naproxen 500 mg for pain at home. Reports no new symptoms. Pain has now worsened in severity since initial onset. Denies fever or chills. No other complaints. (Alfonso Ambrose) - Related Data Home Medications Medication Instructions Recorded Confirmed Multivitamins, Thera [Multivitamin 1 tab PO DAILY 01/23/18 10/13/20 (formulary)] Cholecalciferol [Vitamin D3 (25 25 mcg PO DAILY 10/13/20 10/13/20 Mcg = 1000 Iu)] Omeprazole 20 mg PO DAILY 10/13/20 10/13/20 Previous Rx's Medication Instructions Recorded Cephalexin [Keflex] 500 mg PO Q6HR 5 Days #20 cap 10/13/20 HYDROcodone/APAP 5-325MG [[place] 1 tab PO Q6HR PRN 3 Days #12 tab 09/04/23 5-325] Allergies Allergy/AdvReac Type Severity Reaction Status Date / Time No Known Allergies Allergy Verified 09/04/23 18:42 Review of Systems ROS Other: All systems not noted in ROS Statement are negative. <Latisha Paulson - Last Filed: 09/04/23 20:01> ROS Other: All systems not noted in ROS Statement are negative. <Alfonso Ambrose - Last Filed: 09/05/23 00:08> ROS Statement: Those systems with pertinent positive or pertinent negative responses have been documented in the HPI. Past Medical History Past Medical History: GERD/Reflux History of Any Multi-Drug Resistant Organisms: None Reported Past Surgical History: No Surgical Hx Reported Past Psychological History: Anxiety, Depression Smoking Status: Never smoker Past Alcohol Use History: Occasional Past Drug Use History: None Reported <Latisha Paulson - Last Filed: 09/04/23 20:01> General Exam Limitations: no limitations <Latisha Paulson - Last Filed: 09/04/23 20:01> General appearance: alert, in no apparent distress Eye exam: Present: normal appearance Neck exam: Present: normal inspection Respiratory exam: Present: normal lung sounds bilaterally Cardiovascular Exam: Present: regular rate, normal rhythm GI/Abdominal exam: Present: soft (Abdomen soft. No tenderness to palpation. No rebound guarding or rigidity. Left CVA tenderness to percussion.) Neurological exam: Present: alert, oriented X3 Skin exam: Present: warm, dry <Alfonso Ambrose - Last Filed: 09/05/23 00:08> - General Exam Comments Initial Comments: Visual Physical Exam Vital signs reviewed General: Well-appearing, nontoxic, no acute distress. Head: Normocephalic, atraumatic Eyes: PERRLA, EOMI ENT: Airway patent Chest: Nonlabored breathing Skin: No visual rash, normal skin tone Neuro: Alert and oriented 3 Musculoskeletal: No gross abnormalities (Latisha Paulson) Course Vital Signs 09/04/23 09/04/23 18:40 23:59 Temperature 99.0 F 98.4 F Pulse Rate 118 H 121 H Respiratory 18 19 Rate Blood Pressure 148/106 176/84 O2 Sat by Pulse 96 98 Oximetry Medical Decision Making - Lab Data Result diagrams: 09/04/23 19:12 09/04/23 19:12 <Latisha Paulson - Last Filed: 09/04/23 20:01> - Lab Data Result diagrams: 09/04/23 19:12 09/04/23 19:12 <Alfonso Ambrose - Last Filed: 09/05/23 00:08> - Medical Decision Making Quick note preformed by Latisha Paulson PA-C (Latisha Paulson) Was pt. sent in by a medical professional or institution (, PA, WILDLIFE MANAGER, urgent care, hospital, or fdc...) When possible be specific @ -No Did you speak to anyone other than the patient for history (EMS, parent, family, police, friend...)? What history was obtained from this source @ -No Did you review nursing and triage notes (agree or disagree)? Why? @ -I reviewed and agree with nursing and triage notes Were old charts reviewed (outside hosp., previous admission, EMS record, old EKG, old radiological studies, urgent care reports/EKG's, fdc records)? Report findings @ -No old charts were reviewed Differential Diagnosis (chest pain, altered mental status, abdominal pain women, abdominal pain men, vaginal bleeding, weakness, fever, dyspnea, syncope, headache, dizziness, GI bleed, back pain, seizure, CVA, palpatations, mental health, musculoskeletal)? @ -Differential Abdominal Pain Men: Appendicitis, cholecystitis, diverticulosis, ischemic bowel, pancreatitis, hepatitis, UTI, gastroenteritis, AAA, incarcerated hernia, bowel obstruction, constipation, inflammatory bowel, hepatitis, peptic ulcer disease, splenic infarction, perforated viscus, testicular torsion, this is not meant to be an all-inclusive list EKG interpreted by me (3pts min.). @ -None X-rays interpreted by me (1pt min.). @ -None done CT interpreted by me (1pt min.). @ -None done U/S interpreted by me (1pt. min.). @ -None done What testing was considered but not performed or refused? (CT, X-rays, U/S, labs)? Why? @ -None What meds were considered but not given or refused? Why? @ -None Did you discuss the management of the patient with other professionals (professionals i.e. , PA, WILDLIFE MANAGER, lab, RT, psych nurse, social service agency director, dinkey driver, teacher, electronic intelligence officer, medical case worker)? Give summary @ -No Was smoking cessation discussed for >3mins.? @ -No Was critical care preformed (if so, how long)? @ -No Were there social determinants of health that impacted care today? How? (Homelessness, low income, unemployed, alcoholism, drug addiction, transportation, low edu. Level, literacy, decrease access to med. care, senior living, rehab)? @ -No Was there de-escalation of care discussed even if they declined (Discuss DNR or withdrawal of care, Hospice)? DNR status @ -No What co-morbidities impacted this encounter? (DM, HTN, Smoking, COPD, CAD, Cancer, CVA, ARF, Chemo, Hep., AIDS, mental health diagnosis, sleep apnea, morbid obesity)? @ -None Was patient admitted / discharged? Hospital course, mention meds given and route, prescriptions, significant lab abnormalities, going to OR and other pertinent info. @ -Discharge 32-year-old male presenting to the ED with complaints of intermittent left flank pain. Patient was recently just diagnosed with 3 male left ureteral stone and discharged home with naproxen 500 mg. Despite taking this, notes 20 pain probably presentation to the ED for further evaluation. Patient was no evidence of infection and is otherwise unremarkable. Full cyanosis UA stable afebrile. Discharged home in stable condition with prescription for [place]. Advised follow-up with his urologist as scheduled. Discussed return precautions with patient who verbalizes agreement. Undiagnosed new problem with uncertain prognosis? @ -No Drug Therapy requiring intensive monitoring for toxicity (Heparin, Nitro, Insulin, Cardizem)? @ -No Were any procedures done? @ -No Diagnosis/symptom? @ -Flank pain, 3mm left stone Acute, or Chronic, or Acute on Chronic? @ -Acute Uncomplicated (without systemic symptoms) or Complicated (systemic symptoms)? @ -Uncomplicated Side effects of treatment? @ -No Exacerbation, Progression, or Severe Exacerbation? @ -No Poses a threat to life or bodily function? How? (Chest pain, [place], [place], pneumonia, PE, COPD, DKA, ARF, appy, cholecystitis, CVA, Diverticulitis, Homicidal, Suicidal, threat to staff... and all critical care pts) @ -No (Alfonso Ambrose) - Lab Data Lab Results 09/04/23 09/04/23 09/04/23 Range/Units 19:12 19:12 19:12 WBC 8.4 (3.8-10.6) k/uL RBC 4.96 (4.30-5.90) m/uL Hgb 15.2 (13.0-17.5) gm/dL Hct 44.0 (39.0-53.0) % MCV 88.8 (80.0-100.0) fL MCH 30.7 (25.0-35.0) pg MCHC 34.6 (31.0-37.0) g/dL RDW 12.2 (11.5-15.5) % Plt Count 280 (150-450) k/uL MPV 7.4 Neutrophils % 74 % Lymphocytes % 10 % Monocytes % 12 % Eosinophils % 1 % Basophils % 0 % Neutrophils # 6.3 (1.3-7.7) k/uL Lymphocytes # 0.8 L (1.0-4.8) k/uL Monocytes # 1.0 (0-1.0) k/uL Eosinophils # 0.1 (0-0.7) k/uL Basophils # 0.0 (0-0.2) k/uL Sodium 138 (137-145) mmol/L Potassium 4.2 (3.5-5.1) mmol/L Chloride 102 (98-107) mmol/L Carbon Dioxide 24 (22-30) mmol/L Anion Gap 12 mmol/L BUN 18 (9-20) mg/dL Creatinine 1.58 H (0.66-1.25) mg/dL Est GFR (CKD-EPI)AfAm 66 (>60 ml/min/1.73 sqM) Est GFR (CKD-EPI)NonAf 57 (>60 ml/min/1.73 sqM) Glucose 91 (74-99) mg/dL Calcium 9.6 (8.4-10.2) mg/dL Total Bilirubin 1.4 H (0.2-1.3) mg/dL AST 42 (17-59) U/L ALT 59 H (4-49) U/L Alkaline Phosphatase 105 (38-126) U/L Total Protein 7.8 (6.3-8.2) g/dL Albumin 4.7 (3.5-5.0) g/dL Amylase 58 (30-110) U/L Lipase 86 (23-300) U/L Urine Color Yellow Urine Appearance Clear (Clear) Urine pH 5.5 (5.0-8.0) Ur Specific [place] 1.028 (1.001-1.035) Urine Protein Trace H (Negative) Urine Glucose (UA) Negative (Negative) Urine Ketones 3+ H (Negative) Urine Blood Negative (Negative) Urine Nitrite Negative (Negative) Urine Bilirubin Negative (Negative) Urine Urobilinogen 4.0 (<2.0) mg/dL Ur Leukocyte Esterase Negative (Negative) Disposition <Latisha Paulson - Last Filed: 09/04/23 20:01> Is patient prescribed a controlled substance at d/c from ED?: No Time of Disposition: 00:08 <Alfonso Ambrose - Last Filed: 09/05/23 00:08> Clinical Impression: Flank pain Disposition: HOME SELF-CARE Condition: Good Additional Instructions: Please return to the Emergency Department if symptoms worsen or any other concerns. Follow up with your urologist. Prescriptions: HYDROcodone/APAP 5-325MG [[place] 5-325] 1 tab PO Q6HR PRN 3 Days #12 tab PRN Reason: Pain Referrals: Ericka Currie DO [Primary Care Provider] - 1-2 days
[2023-09-05] MEDS ORDERED: MORPHINE SULFATE 4 MG/ML SYRINGE IM STA (00:01)
[2023-09-05 00:24] VITALS: BP 176/84; PULSE 121; RESP 19; TEMP 98.4
== END 2023-09-05 00:56 | disposition home or self-care (01) ==
LOC: EC 18:27
DX: N20.0 Calculus of kidney (principal); K21.9 Gastro-esophageal reflux disease without esophagitis; Z79.899 Other long term (current) drug therapy; Z86.59 Personal history of other mental and behavioral disorders
CPT/HCPCS: 36415; 80053; 81003; 82150; 83690; 85025; 96372; 99284

== ENCOUNTER 2023-09-08 23:09 | Emergency (ER) | payer BC ==
[2023-09-08 23:15] VITALS: TEMP 97.6
[2023-09-08] MEDS ORDERED: SODIUM CHLORIDE 0.9% 1,000 ML IV STA (23:33)
[2023-09-08] MEDS ORDERED: ONDANSETRON 4 MG/2 ML VIAL IVP STA (23:33)
--- NOTE | 2023-09-08 23:36 | ED ---
General Adult HPI - General Chief complaint: Abdominal Pain Stated complaint: Coughing blood Time Seen by Provider: 09/08/23 23:21 Source: patient Mode of arrival: ambulatory Limitations: no limitations - History of Present Illness Initial comments: Dictation was produced using Fid[employer] dictation software. please excuse any grammatical, word or spelling errors. Chief Complaint: 32-year-old male with kidney stone pain for one week History of Present Illness: And 32-year-old male presents emergency part of her left flank pain. He was here in the hospital 3 days ago for the same complaint. He is diagnosed with a 3 mm obstructing nephrolithiasis at [facility] 1 week ago. He has had symptoms for approximately around the same time. States he was discharged from [facility]. His symptoms improved are the following couple days. He did see the urologist 2 days after his ER appointment at that time his pain was rather mild. He was scheduled to have an ultrasound for his kidney following Saturday. Patient states that his pain is waxing and waning states that it so severe sometimes that it that's why he is here. He states that his pain is improved since he is taking Cana and NSAIDs. The ROS documented in this emergency department record has been reviewed and confirmed by me. Those systems with pertinent positive or negative responses have been documented in the HPI. All other systems are other negative and/or noncontributory. - Related Data Home Medications Medication Instructions Recorded Confirmed Multivitamins, Thera [Multivitamin 1 tab PO DAILY 01/23/18 10/13/20 (formulary)] Cholecalciferol [Vitamin D3 (25 25 mcg PO DAILY 10/13/20 10/13/20 Mcg = 1000 Iu)] Omeprazole 20 mg PO DAILY 10/13/20 10/13/20 Previous Rx's Medication Instructions Recorded Cephalexin [Keflex] 500 mg PO Q6HR 5 Days #20 cap 10/13/20 HYDROcodone/APAP 5-325MG [Cana 1 tab PO Q6HR PRN 3 Days #12 tab 09/04/23 5-325] HYDROcodone/APAP 5-325MG [Cana 1 tab PO Q6HR PRN 3 Days #12 tab 09/09/23 5-325] Allergies Allergy/AdvReac Type Severity Reaction Status Date / Time No Known Allergies Allergy Verified 09/04/23 18:42 Review of Systems ROS Statement: Those systems with pertinent positive or pertinent negative responses have been documented in the HPI. ROS Other: All systems not noted in ROS Statement are negative. Past Medical History Past Medical History: GERD/Reflux History of Any Multi-Drug Resistant Organisms: None Reported Past Surgical History: No Surgical Hx Reported Past Psychological History: Anxiety, Depression Smoking Status: Never smoker Past Alcohol Use History: Occasional Past Drug Use History: None Reported General Exam - General Exam Comments Initial Comments: PHYSICAL EXAM: General Impression: Alert and oriented x3, not in acute distress HEENT: Normocephalic atraumatic, extra-ocular movements intact, pupils equal and reactive to light bilaterally, mucous membranes moist. Cardiovascular: Heart regular rate and rhythm Chest: Able to complete full sentences, no retractions, no tachypnea Abdomen: abdomen soft, non-tender, non-distended, no organomegaly Musculoskeletal: Pulses present and equal in all extremities, no peripheral edema Motor: no focal deficits noted Neurological: CN II-XII grossly intact, no focal motor or sensory deficits noted Skin: Intact with no visualized rashes Psych: Normal affect and mood Limitations: no limitations Course Vital Signs 09/08/23 09/09/23 23:11 00:10 Temperature 97.6 F Pulse Rate 91 70 Respiratory 18 18 Rate Blood Pressure 156/98 135/95 O2 Sat by Pulse 98 96 Oximetry Medical Decision Making - Medical Decision Making Was pt. sent in by a medical professional or institution (Dr. PA, [employer], urgent care, hospital, or jail...) When possible be specific @ -No Did you speak to anyone other than the patient for history (EMS, parent, family, police, friend...)? What history was obtained from this source @ -No Did you review nursing and triage notes (agree or disagree)? Why? @ -I reviewed and agree with nursing and triage notes Were old charts reviewed (outside hosp., previous admission, EMS record, old EKG, old radiological studies, urgent care reports/EKG's, jail records)? Report findings @ -No old charts were reviewed Differential Diagnosis (chest pain, altered mental status, abdominal pain women, abdominal pain men, vaginal bleeding, musculoskeletal, weakness, fever, dyspnea, syncope, headache, dizziness, GI bleed, back pain, seizure, CVA, palpatations, mental health)? @ -Differential Abdominal Pain Men: Appendicitis, cholecystitis, diverticulosis, ischemic bowel, pancreatitis, hepatitis, UTI, gastroenteritis, AAA, incarcerated hernia, bowel obstruction, constipation, inflammatory bowel, hepatitis, peptic ulcer disease, splenic infarction, perforated viscus, testicular torsion, this is not meant to be an all-inclusive list EKG interpreted by me (3pts min.). @ -None done X-rays interpreted by me (1pt min.). @ -None done CT interpreted by me (1pt min.). @ -None done U/S interpreted by me (1pt. min.). @ -Left hydronephrosis What testing was considered but not performed or refused? (CT, X-rays, U/S, labs)? Why? @ -None What meds were considered but not given or refused? Why? @ -None Did you discuss the management of the patient with other professionals (professionals i.e. , PA, [employer], lab, RT, psych nurse, social media analyst, manager operational, teacher, contracting officer, case technician)? Give summary @ -No Was smoking cessation discussed for >3mins.? @ -No Was critical care preformed (if so, how long)? @ -No Were there social determinants of health that impacted care today? How? (Homelessness, low income, unemployed, alcoholism, drug addiction, transportation, low edu. Level, literacy, decrease access to med. care, correction, rehab)? @ -No Was there de-escalation of care discussed even if they declined (Discuss DNR or withdrawal of care, Hospice)? DNR status @ -No What co-morbidities impacted this encounter? (DM, HTN, Smoking, COPD, CAD, Cancer, CVA, ARF, Chemo, Hep., AIDS, mental health diagnosis, sleep apnea, morbid obesity)? @ -None Was patient admitted / discharged? Hospital course, mention meds given and route, prescriptions, significant lab abnormalities, going to OR and other pertinent info. @ - 32 Year-old male with persistent nephrolithiasis symptoms for the last week. He did follow-up with urology outpatient. Vital signs stable. Patient well-appearing at the bedside. Pain is controlled. Laboratory evaluation is unremarkable. Urinalysis shows red and white blood cells. Hydronephrosis seen on ultrasound likely still having obstructive kidney stone. Patient reevaluated at bedside after ER observation in good stable clinical condition. Disposition options are discussed. Patient is agreeable for discharge he is told to contact his urologist tomorrow for further instruction. Undiagnosed new problem with uncertain prognosis? @ -No Drug Therapy requiring intensive monitoring for toxicity (Heparin, Nitro, Insulin, Cardizem)? @ -No Were any procedures done? @ -No Diagnosis/symptom? Acute, or Chronic, or Acute on Chronic? Uncomplicated (without systemic symptoms) or Complicated (systemic symptoms)? @ -Symptomatic nephrolithiasis Side effects of treatment? @ -No Exacerbation, Progression, or Severe Exacerbation? @ -No Poses a threat to life or bodily function? How? (Chest pain, [place], NM, pneumonia, PE, COPD, DKA, ARF, appy, cholecystitis, CVA, Diverticulitis, Homicidal, Suicidal, threat to staff... and all critical care pts) @ -yes - Lab Data Result diagrams: 09/08/23 23:36 09/08/23 23:36 Lab Results 09/08/23 09/08/23 09/08/23 Range/Units 23:28 23:36 23:36 WBC 6.4 (3.8-10.6) k/uL RBC 4.80 (4.30-5.90) m/uL Hgb 14.5 (13.0-17.5) gm/dL Hct 42.2 (39.0-53.0) % MCV 88.0 (80.0-100.0) fL MCH 30.2 (25.0-35.0) pg MCHC 34.3 (31.0-37.0) g/dL RDW 11.7 (11.5-15.5) % Plt Count 314 (150-450) k/uL MPV 7.5 Neutrophils % 63 % Lymphocytes % 23 % Monocytes % 9 % Eosinophils % 3 % Basophils % 0 % Neutrophils # 4.1 (1.3-7.7) k/uL Lymphocytes # 1.5 (1.0-4.8) k/uL Monocytes # 0.6 (0-1.0) k/uL Eosinophils # 0.2 (0-0.7) k/uL Basophils # 0.0 (0-0.2) k/uL Sodium 135 L (137-145) mmol/L Potassium 4.0 (3.5-5.1) mmol/L Chloride 102 (98-107) mmol/L Carbon Dioxide 24 (22-30) mmol/L Anion Gap 9 mmol/L BUN 18 (9-20) mg/dL Creatinine 1.27 H (0.66-1.25) mg/dL Est GFR (CKD-EPI)AfAm 85 (>60 ml/min/1.73 sqM) Est GFR (CKD-EPI)NonAf 74 (>60 ml/min/1.73 sqM) Glucose 91 (74-99) mg/dL Calcium 9.5 (8.4-10.2) mg/dL Urine Color Yellow Urine Appearance Clear (Clear) Urine pH 5.5 (5.0-8.0) Ur Specific [place] 1.027 (1.001-1.035) Urine Protein Trace H (Negative) Urine Glucose (UA) Negative (Negative) Urine Ketones 2+ H (Negative) Urine Blood Large H (Negative) Urine Nitrite Negative (Negative) Urine Bilirubin Negative (Negative) Urine Urobilinogen <2.0 (<2.0) mg/dL Ur Leukocyte Esterase Moderate H (Negative) Urine RBC 26 H (0-5) /hpf Urine WBC 30 H (0-5) /hpf Ur Squamous Epith Cells <1 (0-4) /hpf Urine Bacteria Rare H (None) /hpf Urine Mucus Many H (None) /hpf Disposition Clinical Impression: Kidney stone Disposition: HOME SELF-CARE Condition: Good Instructions (If sedation given, give patient instructions): Kidney Stones (ED) Prescriptions: HYDROcodone/APAP 5-325MG [Cana 5-325] 1 tab PO Q6HR PRN 3 Days #12 tab PRN Reason: Severe Pain Is patient prescribed a controlled substance at d/c from ED?: Yes Referrals: Louie David MD [STAFF PHYSICIAN] - 1-2 days Time of Disposition: 01:21
[2023-09-08 23:54] LABS: Basophils % (A) 0 %; Eosinophils # (A) 0.2 k/uL (0-0.7); Eosinophils % (A) 3 %; HCT 42.2 % (39.0-53.0); HGB 14.5 gm/dL (13.0-17.5); Lymphocytes # (A) 1.5 k/uL (1.0-4.8); Lymphocytes % (A) 23 %; MCH 30.2 pg (25.0-35.0); MCHC 34.3 g/dL (31.0-37.0); Mean Platelet Volume 7.5; Monocytes # (A) 0.6 k/uL (0-1.0); Monocytes % (A) 9 %; Neutrophils # (A) 4.1 k/uL (1.3-7.7); Neutrophils % (A) 63 %; Platelet Count 314 k/uL (150-450); RDW 11.7 % (11.5-15.5); WBC 6.4 k/uL (3.8-10.6)
[2023-09-09] LABS: Appearance,Urine Clear (Clear); Bacteria,Urine Rare /hpf; Bilirubin,Urine Negative (Negative); Blood,Urine Large (Negative); Color,Urine Yellow; Glucose,Urine (UA) Negative (Negative); Ketones,Urine 2+ (Negative); Leukocyte Esterase,Urine Moderate (Negative); Mucus,Urine Many /hpf; Nitrite,Urine Negative (Negative); PH, Urine 5.5 (5.0-8.0); Protein,Urine Trace (Negative); RBC,Urine 26 /hpf (0-5); Specific Gravity,Urine 1.027 (1.001-1.035); Squamous Epithelial Cell,Urine <1 /hpf (0-4); Urobilinogen,Urine <2.0 mg/dL (<2.0); WBC,Urine 30 /hpf (0-5)
[2023-09-09 00:27] LABS: African American GFR (CKD) 85 (>60 ml/min/1.73 sqM); Anion Gap 9 mmol/L; Blood Urea Nitrogen 18 mg/dL (9-20); Calcium 9.5 mg/dL (8.4-10.2); Carbon Dioxide 24 mmol/L (22-30); Chloride 102 mmol/L (98-107); Glucose 91 mg/dL (74-99); Non-African American GFR(CKD) 74 (>60 ml/min/1.73 sqM); Sodium 135 mmol/L (137-145)
--- NOTE | 2023-09-09 01:07 | US ---
EXAM: US Retroperitoneal Complete, Renal CLINICAL HISTORY: ITS.REASON US Reason: flank pain TECHNIQUE: Real-time complete ultrasound of the retroperitoneum with image documentation. COMPARISON: US Retroperitoneal Complete Renal dated 12/26/2018 FINDINGS: Right kidney: Unremarkable. No stones. No hydronephrosis. The right kidney measures 4.2 x 11.3 x 4.9 cm. Left kidney: The left kidney measures 13.9 x 6.4 x 5.6 cm. Mild left hydronephrosis. No stones. Bladder: Mildly distended urinary bladder. Right ureteral jet visualized. Left not visualized. IMPRESSION: Mild left hydronephrosis and left ureteral jet not visualized. Correlate for possible left ureteral obstruction. No stone visualized on this study.
[2023-09-09 01:34] VITALS: BP 144/95; PULSE 75; RESP 17
== END 2023-09-09 01:29 | disposition home or self-care (01) ==
LOC: EC 23:09
DX: N13.2 Hydronephrosis with renal and ureteral calculous obstruction (principal); K21.9 Gastro-esophageal reflux disease without esophagitis; Z86.59 Personal history of other mental and behavioral disorders; Z79.899 Other long term (current) drug therapy
CPT/HCPCS: 36415; 80048; 85025; 99284; 96374; 96361; J2405; 76770; 81001

== ENCOUNTER 2023-09-10 09:57 | Day surgery (SDC) | payer BC ==
--- NOTE | 2023-09-10 09:20 | P.HPIHPCON ---
History of Present Illness H&P Date: 09/10/23 Chief Complaint: Left ureteral stone This is a 32-year-old male with history of a 4 mm left-sided proximal ureteral stone. Patient is having intractable pain secondary to his stone, he has failed medical expulsive therapy. Option of left-sided ureteroscopy versus ESWL was discussed with him in detail. He agreed to proceed with left-sided ureteroscopy with holmium laser. Aware of the risk which include but not limited to bleeding, infection, injury to the ureter Consent for Procedure: I have explained the operation/procedure to the patient, including the risks, benefits, side effects, alternative therapies (including not receiving the pr oposed treatment or service), the likelihood of the patient achieving his/her goals, and potential recuperation problems for the procedure/sedation/analgesia, as well as any blood products, if indicated. I also explained to the patient the risks, benefits and side effects of the alternatives, as well as the risks related to not receiving the proposed procedure, care, treatment, or services. Past Medical History Past Medical History: GERD/Reflux Additional Past Medical History / Comment(s): kidney stones-possibly might have passed something but not sure History of Any Multi-Drug Resistant Organisms: None Reported Past Surgical History: No Surgical Hx Reported Additional Past Surgical History / Comment(s): wisdom teeth removed Past Anesthesia/Blood Transfusion Reactions: Postoperative Nausea & Vomiting (PONV) Additional Past Anesthesia/Blood Transfusion Reaction / Comment(s): nauseated after wisdom teeth Smoking Status: Never smoker Medications and Allergies Home Medications Medication Instructions Recorded Confirmed Type Multivitamins, Thera [Multivitamin 1 tab PO DAILY 01/23/18 09/09/23 History (formulary)] Cholecalciferol [Vitamin D3 (25 25 mcg PO DAILY 10/13/20 09/09/23 History Mcg = 1000 Iu)] Omeprazole 20 mg PO DAILY 10/13/20 09/09/23 History HYDROcodone/APAP 5-325MG [[place] 1 tab PO Q6HR PRN 3 Days #12 tab 09/09/23 09/09/23 Rx 5-325] Allergies Allergy/AdvReac Type Severity Reaction Status Date / Time No Known Allergies Allergy Verified 09/09/23 11:46 Surgical - Exam - General no distress, moderate pain - Eyes normal ocular movement, no pale - ENT normal nares, normal mucosa - Respiratory normal expansion, normal respiratory effort - Abdomen Abdomen: soft, non tender Assessment and Plan Assessment: OR for left-sided ureteroscopy with holmium laser lithotripsy, stone basketing and stent insertion
[~2023-09-10 09:57] MED LIST: DEXAMETHASONE SOD PHOSPHATE 4 MG/ML 1 ML VIAL IV ONE; HYDROmorphone 0.5 MG/0.5 ML SYRINGE IVP PRN; LACTATED RINGERS 1,000 ML IV SCH; LIDOCAINE 1% (10MG/ML) FOR IV START INTRADERMA PRN; METOCLOPRAMIDE 5 MG/ML 2 ML VIAL IVP PRN; ONDANSETRON 4 MG/2 ML VIAL IVP ONE
--- NOTE | 2023-09-10 10:19 | XR ---
EXAMINATION TYPE: XR KUB DATE OF EXAM: 09/10/2023 10:07 AM CLINICAL INDICATION:Male, 32 years old with history of kidney stones; COMPARISON: 09/09/2023. TECHNIQUE: One radiographic view of the abdomen was obtained. FINDINGS: The bowel gas pattern is nonspecific without dilated loops of small or large bowel. There i s no evidence for organomegaly or pneumoperitoneum. The osseous structures are intact. Left 5 mm ca lculus. Fecal material and gas are demonstrated throughout the colon and rectum. IMPRESSION: 1. 5 mm left renal calculus. 2. Nonspecific bowel gas pattern without radiographic evidence for acute process.
[2023-09-10] MEDS ORDERED: ONDANSETRON 4 MG/2 ML VIAL IVP ONE (11:58)
[2023-09-10] MEDS ORDERED: DEXAMETHASONE SOD PHOSPHATE 4 MG/ML 1 ML VIAL IVP ONE (11:59)
[2023-09-10] MEDS ORDERED: KETOROLAC 15 MG/ML 1 ML VIAL ONE (14:07)
[2023-09-10] MEDS ORDERED: PROPOFOL 10 MG/ML 20 ML VIAL IV ONE (14:07)
[2023-09-10] MEDS ORDERED: SUCCINYLCHOLINE CHLORIDE 200 MG/10 ML VIAL IV ONE (14:07)
[2023-09-10] MEDS ORDERED: MIDAZOLAM 2 MG/2 ML VIAL ONE (14:07)
[2023-09-10] MEDS ORDERED: fentaNYL (PF) 50 MCG/ML 2 ML AMP ONE (14:07)
[2023-09-10] MEDS ORDERED: ceFAZolin 1,000 MG VIAL ONE (14:07)
[2023-09-10] MEDS ORDERED: SODIUM CHLORIDE 0.9% 100 ML BAG ONE (14:07)
[2023-09-10] MEDS ORDERED: LIDOCAINE 1% INJ 10MG/ML (20 ML MDV) ONE (14:07)
[2023-09-10] MEDS ORDERED: SODIUM CHLORIDE 0.9% 50 ML with ceFAZolin 2,000 MG IV ONE ×2 (14:30)
--- NOTE | 2023-09-10 15:20 | P.OP ---
Date of Procedure: 09/10/23 Preoperative Diagnosis: Left ureteral stone Postoperative Diagnosis: Same Procedure(s) Performed: Cystoscopy, left ureteroscopy, homing laser lithotripsy, stone basketing and stent insertion Implants: 6 Palestinian by 26 cm stent in the left ureter left on a string Anesthesia: CAROL ANN Surgeon: Louie David Estimated Blood Loss (ml): 5 Pathology: other (left ureteral stone) Condition: stable Disposition: PACU Indications for Procedure: This is a 32-year-old male with history of a 4 mm left-sided proximal ureteral stone. Patient is having intractable pain secondary to his stone, he has failed medical expulsive therapy. Option of left-sided ureteroscopy versus ESWL was discussed with him in detail. He agreed to proceed with left-sided ureteroscopy with holmium laser. Aware of the risk which include but not limited to bleeding, infection, injury to the ureter Operative Findings: Stone at the UPJ that migrated into the midpole Description of Procedure: Patient brought to the operating room, general anesthesia was induced. He was prepped and draped in sterile fashion and placed in dorsolithotomy position. Cystoscopy fitted with a 21 Palestinian sheath was inserted per urethra, cystoscopy was performed which showed no abnormality within the bladder. Attention was then carried to the left ureteral orifice, semirigid ureteroscope was inserted per urethra and advanced up the left ureter orifice, I was able to advance the scope into the mid ureter which showed no evidence of stones, pullback ureteroscopy was performed which showed no injury to the ureter or any ureteral stones, as ureteroscope was withdrawn and a sensor wire was advanced through. Next under fluoroscopy 1113 Palestinian access sheath was passed over the wire into the proximal ureter. The flexible flexible ureteroscope was inserted through the access sheath, at this point the stone was encountered at the UPJ, upon attempting to laser the stone the stone migrated into the midpole. Using the homing laser the stone was fragmented, stone fragments were removed using the stone basket. Repeat renoscopy showed no sizable fragments or injury to the kidney, on fluoroscopy there was no additional radiopaque densities. Pullback ureteroscopy was performed, which showed no injury to the ureter or any ureteral stone, as ureteroscope was withdrawn and a sensor wire was advanced through. Next a ureteral stent was passed over the wire, the proximal curl was visualized under fluoroscopy and the distal curl was visualized using the cystoscope. The stent was left on a string and taped to the patient penis. Patient tolerated procedure well and taken to recovery in stable condition
--- NOTE | 2023-09-10 15:34 | FL ---
Intraoperative/procedural fluoroscopic services were provided for cystoscopy with left-sided stone an d ureteral stent placement. Total fluoroscopy time is 52 seconds with a total of 1 submitted image to PACS. Total DAP [id number] [id number]. Please see the operative note for further details.
[2023-09-10 15:54] VITALS: TEMP 97.2
[2023-09-10 16:41] VITALS: BP 133/89; PULSE 90; RESP 18
== END 2023-09-10 16:43 | disposition home or self-care (01) ==
LOC: OR 09:57
PROVIDERS: ATTEND Urology
DX: N20.1 Calculus of ureter (principal); F41.9 Anxiety disorder, unspecified; F32.A Depression, unspecified; K21.9 Gastro-esophageal reflux disease without esophagitis; Z79.899 Other long term (current) drug therapy; Z87.442 Personal history of urinary calculi
CPT/HCPCS: 52356; 82365; 74018; C2625; C1769; J2250; J0330; J1100; J2405; J0690; J2001; J3010; J1885; J2704

== ENCOUNTER 2023-09-13 13:55 | Inpatient (IN) | payer BC ==
[2023-09-13] MEDS ORDERED: SODIUM CHLORIDE 0.9% 500 ML 500 ML IV ONE (15:07)
[2023-09-13] MEDS ORDERED: SODIUM CHLORIDE 0.9% 1,000 ML IV ONE (15:07)
[2023-09-13] MEDS ORDERED: KETOROLAC 15 MG/ML 1 ML VIAL IVP STA (15:37)
[2023-09-13] MEDS ORDERED: ACETAMINOPHEN TAB 500 MG TAB PO STA (15:37)
--- NOTE | 2023-09-13 15:42 | ED ---
Fever HPI - General Source: patient, RN notes reviewed, old records reviewed Mode of arrival: ambulatory Limitations: no limitations <Kelton Mata - Last Filed: 09/13/23 15:38> - General Source: RN notes reviewed, old records reviewed Mode of arrival: ambulatory Limitations: no limitations - History of Present Illness MD Complaint: fever, malaise, weakness -: days(s) Temperature Source: subjective Context: recent procedure Associated Symptoms: chills, myalgias Treatments Prior to Arrival: none <Martin Holt - Last Filed: 09/25/23 10:32> - General Chief Complaint: Fever Stated Complaint: Fever-post surgery Time Seen by Provider: 09/13/23 15:06 - History of Present Illness Initial Comments: 32-year-old male presents emergency department with chief complaint of fever. Patient states he had a stent and kidney stone removed by Dr. David on Saturday. He states next day he developed fever. He states he has had slight cough he denies any increasing abdominal pain or flank pain. He denies any dysuria. Patient states he is not on any current antibiotics. (Kelton Mata) This is a 32-year-old male to the ER for evaluation of recent stent with kidney stone removal, patient now with significant fever here in the emergency department (Martin Holt) - Related Data Home Medications Medication Instructions Recorded Confirmed Multivitamins, Thera [Multivitamin 1 tab PO DAILY 01/23/18 09/13/23 (formulary)] Cholecalciferol [Vitamin D3 (25 25 mcg PO DAILY 10/13/20 09/13/23 Mcg = 1000 Iu)] Omeprazole 20 mg PO DAILY 10/13/20 09/13/23 Previous Rx's Medication Instructions Recorded HYDROcodone/APAP 5-325MG [[place] 1 tab PO Q6HR PRN 3 Days #12 tab 09/09/23 5-325] Ketorolac [Toradol] 10 mg PO Q6HR PRN #15 tab 09/10/23 Ciprofloxacin HCl [Cipro] 500 mg PO Q12HR 10 Days #20 tab 09/17/23 Allergies Allergy/AdvReac Type Severity Reaction Status Date / Time No Known Allergies Allergy Verified 09/13/23 16:42 Review of Systems ROS Other: All systems not noted in ROS Statement are negative. <Kelton Mata - Last Filed: 09/13/23 15:38> ROS Other: All systems not noted in ROS Statement are negative. <Martin Holt - Last Filed: 09/25/23 10:32> ROS Statement: Those systems with pertinent positive or pertinent negative responses have been documented in the HPI. Past Medical History Past Medical History: GERD/Reflux Additional Past Medical History / Comment(s): kidney stones-possibly might have passed something but not sure History of Any Multi-Drug Resistant Organisms: None Reported Past Surgical History: No Surgical Hx Reported Additional Past Surgical History / Comment(s): wisdom teeth removed Past Anesthesia/Blood Transfusion Reactions: Postoperative Nausea & Vomiting (PONV) Additional Past Anesthesia/Blood Transfusion Reaction / Comment(s): nauseated after wisdom teeth Past Psychological History: Anxiety, Depression Smoking Status: Never smoker Past Alcohol Use History: Occasional Past Drug Use History: None Reported <Kelton Mata - Last Filed: 09/13/23 15:38> General Exam Limitations: no limitations General appearance: alert, in no apparent distress Head exam: Present: atraumatic, normocephalic, normal inspection Eye exam: Present: normal appearance, PERRL, EOMI. Absent: scleral icterus, conjunctival injection, periorbital swelling ENT exam: Present: normal exam, mucous membranes moist Neck exam: Present: normal inspection, full ROM. Absent: tenderness, meningismus, lymphadenopathy Respiratory exam: Present: normal lung sounds bilaterally. Absent: respiratory distress, wheezes, rales, rhonchi, stridor Cardiovascular Exam: Present: normal rhythm, tachycardia, normal heart sounds. Absent: systolic murmur, diastolic murmur, rubs, gallop, clicks GI/Abdominal exam: Present: soft, normal bowel sounds. Absent: distended, tenderness, guarding, rebound, rigid <Kelton Mata - Last Filed: 09/13/23 15:38> General appearance: alert, in no apparent distress Head exam: Present: atraumatic, normocephalic, normal inspection Eye exam: Present: normal appearance, PERRL, EOMI. Absent: scleral icterus, conjunctival injection, periorbital swelling ENT exam: Present: normal exam, mucous membranes moist Neck exam: Present: normal inspection. Absent: tenderness, meningismus, lymphadenopathy Respiratory exam: Present: normal lung sounds bilaterally. Absent: respiratory distress, wheezes, rales, rhonchi, stridor Cardiovascular Exam: Present: regular rate, normal rhythm, normal heart sounds. Absent: systolic murmur, diastolic murmur, rubs, gallop, clicks GI/Abdominal exam: Present: soft, normal bowel sounds. Absent: distended, tenderness, guarding, rebound, rigid Extremities exam: Present: normal inspection, full ROM, normal capillary refill. Absent: tenderness, pedal edema, joint swelling, calf tenderness Back exam: Present: normal inspection Neurological exam: Present: alert, oriented X3, CN II-XII intact Psychiatric exam: Present: normal affect, normal mood Skin exam: Present: warm, dry, intact, normal color. Absent: rash <Martin Holt - Last Filed: 09/25/23 10:32> Course <Martin Holt - Last Filed: 09/25/23 10:32> Vital Signs 09/13/23 09/13/23 09/13/23 14:48 17:08 18:36 Temperature 102.9 F H 101.7 F H 99.2 F Pulse Rate 121 H 94 Respiratory 20 18 Rate Blood Pressure 141/93 115/74 O2 Sat by Pulse 97 98 Oximetry - Reevaluation(s) Reevaluation #1: 09/13/23 19:59 Medical records reviewed (Martin Holt) Reevaluation #2: 09/13/23 19:59 Patient symptoms worsening, fever increasing (Martin Holt) Reevaluation #3: 09/13/23 19:59 Patient informed of results and questions answered (Martin Holt) Reevaluation #4: 09/13/23 19:59 Was pt. sent in by a medical professional or institution (, PA, OUTSIDE SALES, urgent care, hospital, or assisted...) When possible be specific @ -no Did you speak to anyone other than the patient for history (EMS, parent, family, police, friend...)? What history was obtained from this source @ -no Did you review nursing and triage notes (agree or disagree)? Why? @ -agree Are old charts reviewed (outside hosp., previous admission, EMS record, old EKG, old radiological studies, urgent care reports/EKG's, assisted records)? Report findings @ -yes Differential Diagnosis (chest pain, altered mental status, abdominal pain women, abdominal pain men, vaginal bleeding, weakness, fever, dyspnea, syncope, headache, dizziness, GI bleed, back pain, seizure, CVA, palpatations, mental health, musculoskeletal)? @ -prior EKG interpreted by me (3pts min.). @ -yes X-rays interpreted by me (1pt min.). @ -yes negative for acute disease CT interpreted by me (1pt min.). @ -no U/S interpreted by me (1pt. min.). @ -no What testing was considered but not performed or refused? (CT, X-rays, U/S, labs)? Why? @ -none What meds were considered but not given or refused? Why? @ -none Did you discuss the management of the patient with other professionals (professionals i.e. , PA, OUTSIDE SALES, lab, RT, psych nurse, community mental health social worker, drain technician, teacher, chief data officer, pillowcase cutter)? Give summary @ -no Was smoking cessation discussed for >3mins.? @ -no Was critical care preformed (if so, how long)? @ -no Were there social determinants of health that impacted care today? How? (Homelessness, low income, unemployed, alcoholism, drug addiction, transportation, low edu. Level, literacy, decrease access to med. care, longterm, rehab)? @ -none Was there de-escalation of care discussed even if they declined (Discuss DNR or withdrawal of care, Hospice)? DNR status @ -no What co-morbidities impacted this encounter? (DM, HTN, Smoking, COPD, CAD, Cancer, CVA, ARF, Chemo, Hep., AIDS, mental health diagnosis, sleep apnea, morbid obesity)? @ -none Was patient admitted / discharged? Hospital course, mention meds given and route, prescriptions, significant lab abnormalities, going to OR and other pertinent info. @ - 32 male who admitted for IV antibiotics secondary to post stent placement fever and infection Admitted Undiagnosed new problem with uncertain prognosis? @ -no Drug Therapy requiring intensive monitoring for toxicity (Heparin, Nitro, Insulin, Cardizem)? @ -no Were any procedures done? @ -no Diagnosis/symptom? @ -Fever and sepsis Acute, or Chronic, or Acute on Chronic? @ -Acute Uncomplicated (without systemic symptoms) or Complicated (systemic symptoms)? @ -Complicated Side effects of treatment? @ -no Exacerbation, Progression, or Severe Exacerbation? @ -exacerbation Poses a threat to life or bodily function? How? (Chest pain, [place], [place], pneumonia, PE, COPD, DKA, ARF, appy, cholecystitis, CVA, Diverticulitis, Homicidal, Suicidal, threat to staff... and all critical care pts) @ -yes significant fever and sepsis (Martin Holt) Reevaluation #5: 09/13/23 19:59 Differential Fever: Pneumonia, viral URI, endocarditis, myocarditis, pericarditis, otitis, sin usitis, peritonsillar Abscess, retropharyngeal Abscess, epiglottitis, peritonitis, appendicitis, Carolee cystitis, diverticulitis, hepatitis, colitis, UTI, PID, TOA, pyelonephritis, prostatitis, epididymitis, meningitis, encephalitis, pulmonary embolism, CVA, thyroid storm, pancreatitis, adrenal crisis, cavernous sinus thrombosis, this is not meant to be an all-inclusive list. (Martin Holt) - Consultations Consultation #1: Spoke with [facility] who agreed to admit this patient (Martin Holt) Consultation #2: Spoke with Dr. Perez who is aware of this patient (Martin Holt) Procedures - Sepsis Sepsis Focused Exam #1 Time Sepsis Criteria Met: 16:00 Sepsis Focused Exam Date: 09/13/23 Sepsis Focused Exam Time: 19:00 Sepsis Focused Exam Complete: Yes Vital Signs & RN Notes Reviewed: Yes Capillary Refill: < 2 Seconds: Fingers, Toes Peripheral Pulses: Normal: Radial (R), Radial (L), Posterior Tibialis (R), Posterior Tibialis (L), Dorsalis Pedis (R), Dorsalis Pedis (L) Skin Color: Normal for Patient Respiratory Exam: normal lung sounds Cardiovascular Exam: tachycardia <Martin Holt - Last Filed: 09/25/23 10:32> Medical Decision Making - Lab Data Result diagrams: 09/17/23 06:00 09/17/23 06:00 <Martin Holt - Last Filed: 09/25/23 10:32> - Medical Decision Making 32 male who admitted for IV antibiotics secondary to post stent placement fever and infection (Martin Holt) - Lab Data Lab Results 09/13/23 09/13/23 09/13/23 Range/Units 15:16 15:16 15:16 WBC 16.7 H (3.8-10.6) k/uL RBC 5.00 (4.30-5.90) m/uL Hgb 15.0 (13.0-17.5) gm/dL Hct 43.4 (39.0-53.0) % MCV 86.8 (80.0-100.0) fL MCH 30.0 (25.0-35.0) pg MCHC 34.6 (31.0-37.0) g/dL RDW 12.0 (11.5-15.5) % Plt Count 423 (150-450) k/uL MPV 7.8 Neutrophils % 88 % Lymphocytes % 5 % Monocytes % 5 % Eosinophils % 0 % Basophils % 0 % Neutrophils # 14.6 H (1.3-7.7) k/uL Lymphocytes # 0.8 L (1.0-4.8) k/uL Monocytes # 0.9 (0-1.0) k/uL Eosinophils # 0.1 (0-0.7) k/uL Basophils # 0.1 (0-0.2) k/uL Sodium 134 L (137-145) mmol/L Potassium 4.2 (3.5-5.1) mmol/L Chloride 99 (98-107) mmol/L Carbon Dioxide 23 (22-30) mmol/L Anion Gap 12 mmol/L BUN 17 (9-20) mg/dL Creatinine 1.09 (0.66-1.25) mg/dL Est GFR (CKD-EPI)AfAm >90 (>60 ml/min/1.73 sqM) Est GFR (CKD-EPI)NonAf 89 (>60 ml/min/1.73 sqM) Glucose 106 H (74-99) mg/dL Plasma Lactic Acid Ruiz (0.7-2.0) mmol/L Calcium 9.4 (8.4-10.2) mg/dL Total Bilirubin 1.1 (0.2-1.3) mg/dL AST 36 (17-59) U/L ALT 47 (4-49) U/L Alkaline Phosphatase 121 (38-126) U/L Total Protein 7.5 (6.3-8.2) g/dL Albumin 4.4 (3.5-5.0) g/dL Urine Color Light Red Urine Appearance Cloudy (Clear) Urine pH 6.0 (5.0-8.0) Ur Specific [place] 1.020 (1.001-1.035) Urine Protein 2+ H (Negative) Urine Glucose (UA) Negative (Negative) Urine Ketones 1+ H (Negative) Urine Blood Large H (Negative) Urine Nitrite Positive (Negative) Urine Bilirubin Negative (Negative) Urine Urobilinogen <2.0 (<2.0) mg/dL Ur Leukocyte Esterase Large H (Negative) Urine RBC >182 H (0-5) /hpf Urine WBC >182 H (0-5) /hpf Urine WBC Clumps Many H (None) /hpf Ur Squamous Epith Cells 1 (0-4) /hpf Urine Bacteria Few H (None) /hpf Urine Mucus Many H (None) /hpf Influenza Type A (PCR) (Not Detectd) Influenza Type B (PCR) (Not Detectd) RSV (PCR) (Not Detectd) SARS-CoV-2 (PCR) (Not Detectd) 09/13/23 09/13/23 Range/Units 15:16 15:16 WBC (3.8-10.6) k/uL RBC (4.30-5.90) m/uL Hgb (13.0-17.5) gm/dL Hct (39.0-53.0) % MCV (80.0-100.0) fL MCH (25.0-35.0) pg MCHC (31.0-37.0) g/dL RDW (11.5-15.5) % Plt Count (150-450) k/uL MPV Neutrophils % % Lymphocytes % % Monocytes % % Eosinophils % % Basophils % % Neutrophils # (1.3-7.7) k/uL Lymphocytes # (1.0-4.8) k/uL Monocytes # (0-1.0) k/uL Eosinophils # (0-0.7) k/uL Basophils # (0-0.2) k/uL Sodium (137-145) mmol/L Potassium (3.5-5.1) mmol/L Chloride (98-107) mmol/L Carbon Dioxide (22-30) mmol/L Anion Gap mmol/L BUN (9-20) mg/dL Creatinine (0.66-1.25) mg/dL Est GFR (CKD-EPI)AfAm (>60 ml/min/1.73 sqM) Est GFR (CKD-EPI)NonAf (>60 ml/min/1.73 sqM) Glucose (74-99) mg/dL Plasma Lactic Acid Ruiz 1.1 (0.7-2.0) mmol/L Calcium (8.4-10.2) mg/dL Total Bilirubin (0.2-1.3) mg/dL AST (17-59) U/L ALT (4-49) U/L Alkaline Phosphatase (38-126) U/L Total Protein (6.3-8.2) g/dL Albumin (3.5-5.0) g/dL Urine Color Urine Appearance (Clear) Urine pH (5.0-8.0) Ur Specific [place] (1.001-1.035) Urine Protein (Negative) Urine Glucose (UA) (Negative) Urine Ketones (Negative) Urine Blood (Negative) Urine Nitrite (Negative) Urine Bilirubin (Negative) Urine Urobilinogen (<2.0) mg/dL Ur Leukocyte Esterase (Negative) Urine RBC (0-5) /hpf Urine WBC (0-5) /hpf Urine WBC Clumps (None) /hpf Ur Squamous Epith Cells (0-4) /hpf Urine Bacteria (None) /hpf Urine Mucus (None) /hpf Influenza Type A (PCR) Not Detected (Not Detectd) Influenza Type B (PCR) Not Detected (Not Detectd) RSV (PCR) Not Detected (Not Detectd) SARS-CoV-2 (PCR) Not Detected (Not Detectd) Critical Care Time Critical Care Time: Yes Total Critical Care Time: 31 <Martin Holt - Last Filed: 09/25/23 10:32> Disposition <Kelton Mata - Last Filed: 09/13/23 15:38> Is patient prescribed a controlled substance at d/c from ED?: No Time of Disposition: 18:00 <Martin Holt - Last Filed: 09/25/23 10:32> Clinical Impression: Flank pain, Kidney stone, UTI (urinary tract infection), Fever, Sepsis Disposition: ADMITTED IP TO THIS HOSP Condition: Fair
[2023-09-13 15:48] LABS: Basophils # (A) 0.1 k/uL (0-0.2); Basophils % (A) 0 %; Eosinophils # (A) 0.1 k/uL (0-0.7); Eosinophils % (A) 0 %; HCT 43.4 % (39.0-53.0); Lymphocytes # (A) 0.8 k/uL (1.0-4.8); Lymphocytes % (A) 5 %; MCHC 34.6 g/dL (31.0-37.0); MCV 86.8 fL (80.0-100.0); Mean Platelet Volume 7.8; Monocytes # (A) 0.9 k/uL (0-1.0); Monocytes % (A) 5 %; Neutrophils # (A) 14.6 k/uL (1.3-7.7); Neutrophils % (A) 88 %; Platelet Count 423 k/uL (150-450); WBC 16.7 k/uL (3.8-10.6)
[2023-09-13 15:52] LABS: ALT 47 U/L (4-49); AST 36 U/L (17-59); African American GFR (CKD) >90 (>60 ml/min/1.73 sqM); Albumin 4.4 g/dL (3.5-5.0); Alkaline Phosphatase 121 U/L (38-126); Anion Gap 12 mmol/L; Blood Urea Nitrogen 17 mg/dL (9-20); Calcium 9.4 mg/dL (8.4-10.2); Carbon Dioxide 23 mmol/L (22-30); Chloride 99 mmol/L (98-107); Glucose 106 mg/dL (74-99); Non-African American GFR(CKD) 89 (>60 ml/min/1.73 sqM); Potassium 4.2 mmol/L (3.5-5.1); Sodium 134 mmol/L (137-145); Total Bilirubin 1.1 mg/dL (0.2-1.3); Total Protein 7.5 g/dL (6.3-8.2)
[2023-09-13 16:04] LABS: Appearance,Urine Cloudy (Clear); Bacteria,Urine Few /hpf; Bilirubin,Urine Negative (Negative); Blood,Urine Large (Negative); Color,Urine Light Red; Glucose,Urine (UA) Negative (Negative); Ketones,Urine 1+ (Negative); Leukocyte Esterase,Urine Large (Negative); Mucus,Urine Many /hpf; Nitrite,Urine Positive (Negative); Protein,Urine 2+ (Negative); RBC,Urine >182 /hpf (0-5); Squamous Epithelial Cell,Urine 1 /hpf (0-4); Urobilinogen,Urine <2.0 mg/dL (<2.0); WBC,Urine >182 /hpf (0-5)
[2023-09-13] MEDS ORDERED: IBUPROFEN 800 MG TAB PO STA (16:58)
[2023-09-13] MEDS ORDERED: NALOXONE 0.4 MG/ML 1 ML VIAL IV PRN (17:54)
[2023-09-13] MEDS ORDERED: KETOROLAC 15 MG/ML 1 ML VIAL IVP PRN (17:54)
[2023-09-13] MEDS: SODIUM CHLORIDE 0.9% 1,000 ML IV SCH (18:33)
[2023-09-14] MEDS: ONDANSETRON 4 MG/2 ML VIAL IVP PRN (00:37)
[2023-09-14] MEDS: ACETAMINOPHEN TAB 500 MG TAB PO PRN ×3 (00:37→16:07)
[2023-09-14] MEDS: MAG HYDROX/AL HYDROX/SIMETH 30 ML CUP PO PRN ×4 (00:37→21:13)
[2023-09-14] MEDS: SODIUM CHLORIDE 0.9% 1,000 ML IV SCH ×3 (02:48→16:16)
[2023-09-14 02:52] LABS: Appearance,Urine Cloudy (Clear); Bacteria,Urine Occasional /hpf; Bilirubin,Urine Negative (Negative); Blood,Urine Large (Negative); Color,Urine Yellow; Glucose,Urine (UA) Negative (Negative); Ketones,Urine 2+ (Negative); Leukocyte Esterase,Urine Large (Negative); Mucus,Urine Many /hpf; Nitrite,Urine Positive (Negative); PH, Urine 5.5 (5.0-8.0); Protein,Urine 1+ (Negative); RBC,Urine >182 /hpf (0-5); Specific Gravity,Urine 1.017 (1.001-1.035); Urobilinogen,Urine <2.0 mg/dL (<2.0); WBC,Urine >182 /hpf (0-5)
[2023-09-14 09:02] LABS: HCT 38.9 % (39.6-50.0); HGB 13.1 g/dL (13.0-17.0); MCH 29.4 pg (27.0-32.0); MCHC 33.7 g/dL (32.0-37.0); MCV 87.4 FL (80.0-97.0); Mean Platelet Volume 10.3 FL (9.5-12.2); NRBC Per 100 WBC 0 X 10*3/uL (0.00-0.01); Platelet Count 388 X 10*3/uL (140-440); RBC 4.45 X 10*6/uL (4.40-5.60); WBC 26.78 X 10*3/uL (4.50-10.00)
--- NOTE | 2023-09-14 09:18 | XR ---
EXAMINATION TYPE: XR chest 1V portable DATE OF EXAM: 09/14/2023 COMPARISON: 05/02/2022 INDICATION: Fever TECHNIQUE: Single frontal view of the chest is obtained. FINDINGS: The heart size is normal. The pulmonary vasculature is normal. The lungs are clear. IMPRESSION: 1. No acute pulmonary process.
[2023-09-14 09:22] LABS: ALT 59 U/L (10-49); AST 48 U/L (14-35); Albumin 3.7 g/dL (3.8-4.9); Albumin/Globulin Ratio 1.54 Ratio (1.60-3.17); Alkaline Phosphatase 122 U/L (41-126); Blood Urea Nitrogen 11.2 mg/dL (9.0-27.0); Calcium 8.2 mg/dL (8.7-10.3); Carbon Dioxide 22.6 mmol/L (21.6-31.8); Chloride 97 mmol/L (96-109); Globulin 2.4 g/dL (1.6-3.3); Glucose 100 mg/dL (70-110); Magnesium 1.3 mg/dL (1.5-2.4); Phosphorus 2.2 mg/dL (2.4-5.1); Potassium 3.9 mmol/L (3.5-5.5); Sodium 132 mmol/L (135-145); Total Bilirubin 0.8 mg/dL (0.3-1.2); Total Protein 6.1 g/dL (6.2-8.2)
--- NOTE | 2023-09-14 10:05 | P.GSCN ---
History of Present Illness Consult date: 09/14/23 Reason for Consult: UTI, left ureteral stone History of present illness: This is a 32-year-old male that underwent left-sided ureteroscopy with holmium laser on September 10. Surgery was uncomplicated. presented to the ER with high- grade fevers and leukocytosis that started on September 11, but he presented to the ER yesterday. Patient was admitted to the hospital for sepsis. On presentation his urinalysis was consistent with a UTI. He indicated his fevers associated with fatigue and malaise. Denies any dysuria, gross hematuria, or flank pain. He currently does have a stent in the left kidney which is attached to a string. His white count this morning was 26.7 he remains febrile at 102.5. Review of Systems - Constitutional Reports chills, Reports fatigue, Reports fever, Reports weakness - EENT Ears, nose, mouth and throat: Denies dysphagia - Cardiovascular Denies chest pain, Denies shortness of breath - Respiratory Denies cough, Denies 7 - Gastrointestinal Reports as per HPI - Genitourinary Denies dysuria, Denies hematuria - Integumentary Denies rash, Denies unusual bruising - Neurological Denies headaches, Denies syncope Past Medical History Past Medical History: GERD/Reflux Additional Past Medical History / Comment(s): kidney stones-possibly might have passed something but not sure History of Any Multi-Drug Resistant Organisms: None Reported Past Surgical History: No Surgical Hx Reported Additional Past Surgical History / Comment(s): wisdom teeth removed Past Anesthesia/Blood Transfusion Reactions: Postoperative Nausea & Vomiting (PONV) Additional Past Anesthesia/Blood Transfusion Reaction / Comm: nauseated after wisdom teeth Past Psychological History: Anxiety, Depression Smoking Status: Never smoker Past Alcohol Use History: Occasional Past Drug Use History: None Reported Medications and Allergies Home Medications Medication Instructions Recorded Confirmed Type Multivitamins, Thera [Multivitamin 1 tab PO DAILY 01/23/18 09/13/23 History (formulary)] Cholecalciferol [Vitamin D3 (25 25 mcg PO DAILY 10/13/20 09/13/23 History Mcg = 1000 Iu)] Omeprazole 20 mg PO DAILY 10/13/20 09/13/23 History HYDROcodone/APAP 5-325MG [[place] 1 tab PO Q6HR PRN 3 Days #12 tab 01/22/24 01/26/24 Rx 5-325] Ketorolac [Toradol] 10 mg PO Q6HR PRN #15 tab 09/10/23 09/13/23 Rx Allergies Allergy/AdvReac Type Severity Reaction Status Date / Time No Known Allergies Allergy Verified 09/13/23 16:42 Surgical - Exam Vital Signs Temp Pulse Resp BP Pulse Ox 102.9 F H 121 H 20 141/93 97 09/13/23 14:48 09/13/23 14:48 09/13/23 14:48 09/13/23 14:48 09/13/23 14:48 - General no distress, no pain - Eyes normal ocular movement, no pale - ENT normal nares, normal mucosa - Respiratory normal expansion, normal respiratory effort - Abdomen Abdomen: soft, non tender - Psychiatric oriented to time, oriented to person, oriented to place Results - Labs 09/14/23 06:17 09/14/23 06:17 Abnormal Lab Results - Last 24 Hours (Table) 09/13/23 09/13/23 09/13/23 Range/Units 15:16 15:16 15:16 WBC 16.7 H (3.8-10.6) k/uL Hct (39.6-50.0) % Neutrophils # 14.6 H (1.3-7.7) k/uL Lymphocytes # 0.8 L (1.0-4.8) k/uL Sodium 134 L (137-145) mmol/L Anion Gap (4.00-12.00) mmol/L BUN/Creatinine Ratio (12.00-20.00) Ratio Glucose 106 H (74-99) mg/dL Calcium (8.7-10.3) mg/dL Phosphorus (2.4-5.1) mg/dL Magnesium (1.5-2.4) mg/dL AST (14-35) U/L ALT (10-49) U/L Total Protein (6.2-8.2) g/dL Albumin (3.8-4.9) g/dL Albumin/Globulin Ratio (1.60-3.17) Ratio Urine Protein 2+ H (Negative) Urine Ketones 1+ H (Negative) Urine Blood Large H (Negative) Ur Leukocyte Esterase Large H (Negative) Urine RBC >182 H (0-5) /hpf Urine WBC >182 H (0-5) /hpf Urine WBC Clumps Many H (None) /hpf Urine Bacteria Few H (None) /hpf Urine Mucus Many H (None) /hpf 09/14/23 09/14/23 09/14/23 Range/Units 02:20 06:17 06:17 WBC 26.78 H (3.8-10.6) k/uL Hct 38.9 L (39.6-50.0) % Neutrophils # (1.3-7.7) k/uL Lymphocytes # (1.0-4.8) k/uL Sodium 132 L (137-145) mmol/L Anion Gap 12.40 H (4.00-12.00) mmol/L BUN/Creatinine Ratio 11.20 L (12.00-20.00) Ratio Glucose (74-99) mg/dL Calcium 8.2 L (8.7-10.3) mg/dL Phosphorus 2.2 L (2.4-5.1) mg/dL Magnesium 1.3 L (1.5-2.4) mg/dL AST 48 H (14-35) U/L ALT 59 H (10-49) U/L Total Protein 6.1 L (6.2-8.2) g/dL Albumin 3.7 L (3.8-4.9) g/dL Albumin/Globulin Ratio 1.54 L (1.60-3.17) Ratio Urine Protein 1+ H (Negative) Urine Ketones 2+ H (Negative) Urine Blood Large H (Negative) Ur Leukocyte Esterase Large H (Negative) Urine RBC >182 H (0-5) /hpf Urine WBC >182 H (0-5) /hpf Urine WBC Clumps Few H (None) /hpf Urine Bacteria Occasional H (None) /hpf Urine Mucus Many H (None) /hpf Diabetes panel 09/13/23 09/14/23 Range/Units 15:16 06:17 Sodium 134 L 132 L (137-145) mmol/L Potassium 4.2 3.9 (3.5-5.1) mmol/L Chloride 99 97 (98-107) mmol/L Carbon Dioxide 23 22.6 (22-30) mmol/L BUN 17 11.2 (9-20) mg/dL Creatinine 1.09 1.0 (0.66-1.25) mg/dL Glucose 106 H 100 (74-99) mg/dL Calcium 9.4 8.2 L (8.4-10.2) mg/dL AST 36 48 H (17-59) U/L ALT 47 59 H (4-49) U/L Alkaline Phosphatase 121 122 (38-126) U/L Total Protein 7.5 6.1 L (6.3-8.2) g/dL Albumin 4.4 3.7 L (3.5-5.0) g/dL Calcium panel 09/13/23 09/14/23 Range/Units 15:16 06:17 Calcium 9.4 8.2 L (8.4-10.2) mg/dL Phosphorus 2.2 L (2.4-5.1) mg/dL Albumin 4.4 3.7 L (3.5-5.0) g/dL Pituitary panel 09/13/23 09/14/23 Range/Units 15:16 06:17 Sodium 134 L 132 L (137-145) mmol/L Potassium 4.2 3.9 (3.5-5.1) mmol/L Chloride 99 97 (98-107) mmol/L Carbon Dioxide 23 22.6 (22-30) mmol/L BUN 17 11.2 (9-20) mg/dL Creatinine 1.09 1.0 (0.66-1.25) mg/dL Glucose 106 H 100 (74-99) mg/dL Calcium 9.4 8.2 L (8.4-10.2) mg/dL Adrenal panel 09/13/23 09/14/23 Range/Units 15:16 06:17 Sodium 134 L 132 L (137-145) mmol/L Potassium 4.2 3.9 (3.5-5.1) mmol/L Chloride 99 97 (98-107) mmol/L Carbon Dioxide 23 22.6 (22-30) mmol/L BUN 17 11.2 (9-20) mg/dL Creatinine 1.09 1.0 (0.66-1.25) mg/dL Glucose 106 H 100 (74-99) mg/dL Calcium 9.4 8.2 L (8.4-10.2) mg/dL Total Bilirubin 1.1 0.8 (0.2-1.3) mg/dL AST 36 48 H (17-59) U/L ALT 47 59 H (4-49) U/L Alkaline Phosphatase 121 122 (38-126) U/L Total Protein 7.5 6.1 L (6.3-8.2) g/dL Albumin 4.4 3.7 L (3.5-5.0) g/dL Assessment and Plan Assessment: 32-year-old male admitted to the hospital status post left-sided ureteroscopy. Urine analysis is consistent with a UTI. White count is elevated at 26.7 this morning he remains febrile at 102. -Will continue with IV ceftriaxone -Follow-up on urine and blood culture -Keep stent in place
[2023-09-14 10:07] LABS: Basophils # (A) 0.06 X 10*3/uL (0.00-0.10); Basophils % (A) 0.2 %; Eosinophils # (A) 0.07 X 10*3/uL (0.04-0.35); Eosinophils % (A) 0.3 %; Lymphocytes # (A) 0.75 X 10*3/uL (0.90-5.00); Lymphocytes % (A) 2.8 %; Monocytes # (A) 2.27 X 10*3/uL (0.20-1.00); Monocytes % (A) 8.5 %; Neutrophils # (A) 23.39 X 10*3/uL (1.80-7.70); Neutrophils % (A) 87.3 %; RBC Morphology Normal (Normal)
--- NOTE | 2023-09-14 12:49 | P.HPIM ---
History of Present Illness This is a pleasant 32 years old male with past medical history of left kidney stone. Underwent left lithotripsy associated with left ureterostomy and stent placement He was discharged last Saturday after the procedure. His been having diarrhea Orellana next day he started having fever for the last 2 days before he decides to come to the hospital He is complaining of from some mild epigastric discomfort which is better now, And last time and this morning, however his abdomen looks soft with no tenderness today. His been complaining of from diarrhea he had about 6 bouts of loose bowel movement last night and into this morning No vomiting but he has poor appetite He denies chest pain or dyspnea, no headache dizziness weakness or numbness. He denies dysuria urgency or other urinary complaints His nonsmoker, no illicit drugs. Drinks alcohol occasionally On admission he had a fever of 102.3. Restoril Vitas looks stable He had leukocytosis of 16.7, rest of CBC, BMP and liver enzymes were unremarkable Blood cultures pending Urine analysis suspicious for infection Influenza A and type B, RSV, SARS (coronavirus) are and detected No imaging done of the abdomen: Chest x-ray: No acute process. Patient currently is covered with antibiotic Rocephin Review of Systems Review of systems -CONSTITUTIONAL: As above HEENT: No recent visual problems or hearing problems. Denied any sore throat. CARDIOVASCULAR: No orthopnea, PND, no palpitations, no syncope. PULMONARY: No shortness of breath, no cough, no hemoptysis. GASTROINTESTINAL: No diarrhea, no nausea, no vomiting, no abdominal pain. Normoactive bowel sounds. NEUROLOGICAL: No headaches, no weakness, no numbness. HEMATOLOGICAL: Denies any bleeding or petechiae. GENITOURINARY: Denies any burning micturition, frequency, or urgency. MUSCULOSKELETAL/RHEUMATOLOGICAL: Denies any joint pain, swelling, or any muscle pain. ENDOCRINE: Denies any polyuria or polydipsia. Past Medical History Past Medical History: GERD/Reflux Additional Past Medical History / Comment(s): kidney stones-possibly might have passed something but not sure History of Any Multi-Drug Resistant Organisms: None Reported Past Surgical History: No Surgical Hx Reported Additional Past Surgical History / Comment(s): wisdom teeth removed Past Anesthesia/Blood Transfusion Reactions: Postoperative Nausea & Vomiting (PONV) Additional Past Anesthesia/Blood Transfusion Reaction / Comment(s): nauseated after wisdom teeth Past Psychological History: Anxiety, Depression Smoking Status: Never smoker Past Alcohol Use History: Occasional Past Drug Use History: None Reported Medications and Allergies Home Medications Medication Instructions Recorded Confirmed Type Multivitamins, Thera [Multivitamin 1 tab PO DAILY 01/23/18 09/13/23 History (formulary)] Cholecalciferol [Vitamin D3 (25 25 mcg PO DAILY 10/13/20 09/13/23 History Mcg = 1000 Iu)] Omeprazole 20 mg PO DAILY 10/13/20 09/13/23 History HYDROcodone/APAP 5-325MG [Lander 1 tab PO Q6HR PRN 3 Days #12 tab 09/09/23 09/13/23 Rx 5-325] Ketorolac [Toradol] 10 mg PO Q6HR PRN #15 tab 09/10/23 09/13/23 Rx Allergies Allergy/AdvReac Type Severity Reaction Status Date / Time No Known Allergies Allergy Verified 09/13/23 16:42 Physical Exam Vitals: Vital Signs Temp Pulse Pulse Resp BP BP Pulse Ox 09/14/23 08:15 101.0 F H 09/14/23 07:08 102.5 F H 119 H 17 138/86 100 09/14/23 03:00 100 F H 09/14/23 02:00 100.8 F H 84 18 128/83 98 09/13/23 18:36 99.2 F 94 18 115/74 98 09/13/23 17:08 101.7 F H 09/13/23 14:48 102.9 F H 121 H 20 141/93 97 Intake and Output 09/13/23 09/14/23 09/14/23 22:59 06:59 14:59 Intake Total 500 Balance 500 Intake: Oral 500 Other: Voiding Method Toilet # Voids 3 # Bowel Movements 3 Weight 97.069 kg -GENERAL: The patient is alert and oriented x3, not in any acute distress. Well developed, well nourished. General malaise HEENT: Pupils are round and equally reacting to light. EOMI. No scleral icterus. No conjunctival pallor. Normocephalic, atraumatic. No pharyngeal erythema. No thyromegaly. CARDIOVASCULAR: S1 and S2 present. No murmurs, rubs, or gallops. PULMONARY: Chest is clear to auscultation, no wheezing , no crackles. ABDOMEN: Soft, nontender, nondistended, normoactive bowel sounds. No palpable organomegaly. MUSCULOSKELETAL: No joint swelling or deformity. EXTREMITIES: No cyanosis, clubbing, or pedal edema. NEUROLOGICAL: Gross neurological examination did not reveal any focal deficits. SKIN: No rashes. no petechiae. Results CBC & Chem 7: 09/14/23 06:17 09/14/23 06:17 Labs: Abnormal Lab Results - Last 24 Hours (Table) 09/13/23 09/13/23 09/13/23 Range/Units 15:16 15:16 15:16 WBC 16.7 H (3.8-10.6) k/uL Hct (39.6-50.0) % Immature Gran # (0.00-0.04) X 10*3/uL Neutrophils # 14.6 H (1.3-7.7) k/uL Lymphocytes # 0.8 L (1.0-4.8) k/uL Monocytes # (0.20-1.00) X 10*3/uL Sodium 134 L (137-145) mmol/L Anion Gap (4.00-12.00) mmol/L BUN/Creatinine Ratio (12.00-20.00) Ratio Glucose 106 H (74-99) mg/dL Calcium (8.7-10.3) mg/dL Phosphorus (2.4-5.1) mg/dL Magnesium (1.5-2.4) mg/dL AST (14-35) U/L ALT (10-49) U/L Total Protein (6.2-8.2) g/dL Albumin (3.8-4.9) g/dL Albumin/Globulin Ratio (1.60-3.17) Ratio Urine Protein 2+ H (Negative) Urine Ketones 1+ H (Negative) Urine Blood Large H (Negative) Ur Leukocyte Esterase Large H (Negative) Urine RBC >182 H (0-5) /hpf Urine WBC >182 H (0-5) /hpf Urine WBC Clumps Many H (None) /hpf Urine Bacteria Few H (None) /hpf Urine Mucus Many H (None) /hpf 09/14/23 09/14/23 09/14/23 Range/Units 02:20 06:17 06:17 WBC 26.78 H (3.8-10.6) k/uL Hct 38.9 L (39.6-50.0) % Immature Gran # 0.24 H (0.00-0.04) X 10*3/uL Neutrophils # 23.39 H (1.3-7.7) k/uL Lymphocytes # 0.75 L (1.0-4.8) k/uL Monocytes # 2.27 H (0.20-1.00) X 10*3/uL Sodium 132 L (137-145) mmol/L Anion Gap 12.40 H (4.00-12.00) mmol/L BUN/Creatinine Ratio 11.20 L (12.00-20.00) Ratio Glucose (74-99) mg/dL Calcium 8.2 L (8.7-10.3) mg/dL Phosphorus 2.2 L (2.4-5.1) mg/dL Magnesium 1.3 L (1.5-2.4) mg/dL AST 48 H (14-35) U/L ALT 59 H (10-49) U/L Total Protein 6.1 L (6.2-8.2) g/dL Albumin 3.7 L (3.8-4.9) g/dL Albumin/Globulin Ratio 1.54 L (1.60-3.17) Ratio Urine Protein 1+ H (Negative) Urine Ketones 2+ H (Negative) Urine Blood Large H (Negative) Ur Leukocyte Esterase Large H (Negative) Urine RBC >182 H (0-5) /hpf Urine WBC >182 H (0-5) /hpf Urine WBC Clumps Few H (None) /hpf Urine Bacteria Occasional H (None) /hpf Urine Mucus Many H (None) /hpf Thrombosis Risk Factor Assmnt - Choose All That Apply Any of the Below Risk Factors Present?: No Assessment and Plan Assessment: Acute pyelonephritis/UTI Left kidney stone, Recent history of left lithotripsy and left ureterostomy and stent placement few days prior to hospitalization Acute diarrhea and mild epigastric pain, could be reactive. Rule out infectious gastroenteritis Sepsis with fever and leukocytosis secondary to above Plan: Continue with ceftriaxone Continue with normal saline Check CT of abdomen and pelvis without IV contrast Urology consult Fractures disease consult Check for C. diff stool cultures Labs and medication were reviewed.. Continue same treatment. Continue with symptomatic treatment. Resume home medication. Monitor labs and vitals. DVT and GI prophylaxis. Further recommendations as per clinical course of the patient DVT prophylaxis: Subcutaneous heparin GI Prophylaxis: Pepcid Prognosis is guarded
[2023-09-14] MEDS ORDERED: IBUPROFEN 600 MG TAB PO PRN (14:26)
[2023-09-14] MEDS: IOPAMIDOL CONTRAST (ORAL USE) VIAL PO PRN ×2 (14:47→16:03)
--- NOTE | 2023-09-14 18:11 | CT ---
EXAMINATION TYPE: CT abdomen pelvis wo con DATE OF EXAM: 09/14/2023 COMPARISON: Left flank pain INDICATION: Epigastric pain and diarrhea. DLP: 710.2 mGycm, Automated exposure control for dose reduction was used. CONTRAST: None Study performed without Oral Contrast TECHNIQUE: Axial images were obtained from above the diaphragm to the pubic rami in the axial plane a t 5 mm thick sections. Reconstructed images are reviewed on the computer in the coronal plane. FINDINGS: Limited CT sections are obtained the lung bases. The lung bases are clear. There is a moderate size hiatal hernia present. CT ABDOMEN: Liver: Hepatic cyst is present Spleen: Normal Pancreas: Normal Adrenal glands: There is a low-density thickening of the right adrenal gland of 1.5 cm. Gallbladder: Normal Kidneys: There is a moderate left hydronephrosis. This extends to a proximal left ureter 0.8 cm obstr ucting ureteral stone. Periureteral stranding is present. There is a 0.3 cm nonobstructing mid left u reteral stone. There is a nonobstructing 0.3 x 1.2 cm mid left renal stone. Aorta: Vascular calcification is within the aorta. Inferior vena cava: Normal. CT PELVIS: Loops of bowel within the abdomen and pelvis are normal. Diverticular changes are within the sigmoid colon. No acute diverticulitis is evident. There are loops of bowel which are incompletely distend ed or lack oral contrast limiting their evaluation. Appendix: Not identified. No dilated tubular structure or inflammatory changes evident. Urinary bladder: Normal. Genitourinary structures: Uterus and ovaries are not identified. Osseous structures: No suspicious lytic or sclerotic lesions. IMPRESSION: 1. Moderate left hydronephrosis with a nonobstructing 0.3 cm x 1.2 cm mid left ureteral stone. 2. Diverticulosis without acute diverticulitis. 3. Nonobstructing left renal stones.
[2023-09-14] MEDS ORDERED: Magnesium Replacement Protocol 1 EACH MISC MISCELLANE PRN (18:21)
[2023-09-15] MEDS: SODIUM CHLORIDE 0.9% 1,000 ML IV SCH ×3 (00:55→18:00)
[2023-09-15] MEDS: ONDANSETRON 4 MG/2 ML VIAL IVP PRN (01:32)
[2023-09-15] MEDS: ACETAMINOPHEN TAB 500 MG TAB PO PRN ×2 (02:13→18:00)
--- NOTE | 2023-09-15 10:19 | P.PN ---
Subjective This is a pleasant 32 years old male with past medical history of left kidney stone. Underwent left lithotripsy associated with left ureterostomy and stent placement He was discharged last Saturday after the procedure. His been having diarrhea Orellana next day he started having fever for the last 2 days before he decides to come to the hospital He is complaining of from some mild epigastric discomfort which is better now, And last time and this morning, however his abdomen looks soft with no tenderness today. His been complaining of from diarrhea he had about 6 bouts of loose bowel movement last night and into this morning No vomiting but he has poor appetite He denies chest pain or dyspnea, no headache dizziness weakness or numbness. He denies dysuria urgency or other urinary complaints His nonsmoker, no illicit drugs. Drinks alcohol occasionally On admission he had a fever of 102.3. Restoril Vitas looks stable He had leukocytosis of 16.7, rest of CBC, BMP and liver enzymes were unremarkable Blood cultures pending Urine analysis suspicious for infection Influenza A and type B, RSV, SARS (coronavirus) are and detected No imaging done of the abdomen: Chest x-ray: No acute process. Patient currently is covered with antibiotic Rocephin 09/15/2023 Patient still looks tired but no specific complaints, he is fully oriented He vomited once this morning Is complaining of from hemorrhoids Physical pain from dysuria He had fever of 101.1 today He had a fever of 101.1 today Leukocytosis 26.7 yesterday Moderate elevated liver enzymes magnesium is low been replaced yesterday Repeat labs from today pending Urine culture, gram-negative bacilli, blood cultures pending Patient remains on normal saline with 30 mL/h and ceftriaxone [address] of the abdomen and pelvis showing moderate left hydronephrosis with nonobstructing 0.3 cm x 12.2 cm left ureteral stone with diverticulosis but no diverticulitis Review of systems CONSTITUTIONAL: No fever, no malaise, no fatigue. HEENT: No recent visual problems or hearing problems. Denied any sore throat. CARDIOVASCULAR: No orthopnea, PND, no palpitations, no syncope. PULMONARY: No shortness of breath, no cough, no hemoptysis. HEMATOLOGICAL: Denies any bleeding or petechiae. MUSCULOSKELETAL/RHEUMATOLOGICAL: Denies any joint pain, swelling, or any muscle pain. ENDOCRINE: Denies any polyuria or polydipsia. Active Medications Generic Name Dose Route Start Last Admin Trade Name Freq PRN Reason Stop Dose Admin Acetaminophen 500 mg 09/14/23 00:33 09/15/23 02:13 Acetaminophen Tab 500 Mg Tab PO 500 mg Q6HR PRN Administration Fever and/ or Pain Al Hydroxide/Mg Hydroxide 30 ml 09/14/23 00:33 09/14/23 21:13 Mag Hydrox/Al Hydrox/Simeth 30 Ml Cup PO 30 ml Q4HR PRN Administration GI Upset Famotidine 20 mg 09/15/23 21:00 Famotidine 20 Mg/2 Ml Vial IV Q12HR KVNG Heparin Sodium (Porcine) 5,000 unit 09/15/23 21:00 Heparin Sodium,Porcine 5,000 Unit/Ml 1 Ml Vial SQ Q12HR KVNG Sodium Chloride 1,000 mls @ 130 mls/hr 09/13/23 18:00 09/15/23 09:26 Saline 0.9% IV 130 mls/hr .Q7H42M KVNG Administration Ceftriaxone Sodium 2 gm/ 50 mls @ 100 mls/hr 09/15/23 09:00 09/15/23 09:25 Sodium Chloride IVPB 100 mls/hr Q24HR KVNG Administration Ibuprofen 600 mg 09/14/23 14:26 09/14/23 14:45 Ibuprofen 600 Mg Tab PO 600 mg Q6HR PRN Administration Pain Ketorolac Tromethamine 15 mg 09/13/23 17:54 Ketorolac 15 Mg/Ml 1 Ml Vial IVP 09/16/23 17:54 Q6HR PRN Moderate Pain (Scale 4 to 6) Miscellaneous Information 1 each 09/14/23 18:21 Magnesium Replacement Protocol 1 Each Misc MISCELLANE DAILY PRN Per Protocol Protocol Naloxone HCl 0.2 mg 09/13/23 17:54 Naloxone 0.4 Mg/Ml 1 Ml Vial IV Q2M PRN Opioid Reversal Ondansetron HCl 4 mg 09/13/23 17:54 09/15/23 01:32 Ondansetron 4 Mg/2 Ml Vial IVP 4 mg Q8HR PRN Administration Nausea And Vomiting Objective - Vital Signs Vital signs: Vital Signs Temp 98.6 F 09/15/23 07:05 Pulse 94 09/15/23 07:05 Resp 18 09/15/23 07:05 BP 127/83 09/15/23 07:05 Pulse Ox 99 09/15/23 07:05 FiO2 Intake & Output 09/14/23 09/15/23 09/15/23 18:59 06:59 18:59 Intake Total 1200 Balance 1200 Intake: Intake, IV Titration 1200 Amount Sodium Chloride 0.9% 1, 1200 000 ml @ 130 mls/hr IV . Q7H42M [facility] Rx#:[id number] Other: Voiding Method Toilet # Voids 2 # Bowel Movements 4 - Exam -GENERAL: The patient is alert and oriented x3, not in any acute distress. Well developed, well nourished. Generally weak HEENT: Pupils are round and equally reacting to light. EOMI. No scleral icterus. No conjunctival pallor. Normocephalic, atraumatic. No pharyngeal erythema. No thyromegaly. CARDIOVASCULAR: S1 and S2 present. No murmurs, rubs, or gallops. PULMONARY: Chest is clear to auscultation, no wheezing , no crackles. ABDOMEN: Soft, nontender, nondistended, normoactive bowel sounds. No palpable organomegaly. MUSCULOSKELETAL: No joint swelling or deformity. EXTREMITIES: No cyanosis, clubbing, or pedal edema. NEUROLOGICAL: Gross neurological examination did not reveal any focal deficits. SKIN: No rashes. no petechiae. - Labs CBC & Chem 7: 09/14/23 06:17 09/14/23 06:17 Labs: Microbiology - Last 24 Hours (Table) 09/13/23 17:10 Blood Culture - Preliminary Blood 09/13/23 16:50 Blood Culture - Preliminary Blood 09/13/23 15:16 Urine Culture - Preliminary Urine,Voided Gram Neg Bacilli Assessment and Plan Assessment: Acute pyelonephritis/UTI Left kidney stone, Recent history of left lithotripsy and left ureterostomy and stent placement few days prior to hospitalization Acute diarrhea and mild epigastric pain, reactive. Improved Sepsis with fever and leukocytosis secondary to above Plan: Continue with ceftriaxone Continue with normal saline Urology consult Infectious dis consult Follow-up urine and blood culture Labs and medication were reviewed.. Continue same treatment. Continue with symptomatic treatment. Resume home medication. Monitor labs and vitals. DVT and GI prophylaxis. Further recommendations as per clinical course of the patient DVT prophylaxis: Subcutaneous heparin GI Prophylaxis: Pepcid Prognosis is guarded
[2023-09-15 10:24] LABS: Basophils # (A) 0.04 X 10*3/uL (0.00-0.10); Basophils % (A) 0.3 %; Eosinophils # (A) 0 X 10*3/uL (0.04-0.35); Eosinophils % (A) 0 %; HCT 37.4 % (39.6-50.0); HGB 12.8 g/dL (13.0-17.0); Lymphocytes # (A) 1.01 X 10*3/uL (0.90-5.00); Lymphocytes % (A) 6.4 %; MCHC 34.2 g/dL (32.0-37.0); MCV 87.6 FL (80.0-97.0); Mean Platelet Volume 10.5 FL (9.5-12.2); Monocytes # (A) 1.55 X 10*3/uL (0.20-1.00); Monocytes % (A) 9.8 %; NRBC Per 100 WBC 0 X 10*3/uL (0.00-0.01); Neutrophils # (A) 13.12 X 10*3/uL (1.80-7.70); Platelet Count 396 X 10*3/uL (140-440); RBC 4.27 X 10*6/uL (4.40-5.60); RDW 12.2 % (11.5-14.5)
[2023-09-15 11:57] LABS: Blood Urea Nitrogen 10.8 mg/dL (9.0-27.0); Calcium 8.1 mg/dL (8.7-10.3); Carbon Dioxide 23.1 mmol/L (21.6-31.8); Chloride 100 mmol/L (96-109); Glucose 91 mg/dL (70-110); Magnesium 1.8 mg/dL (1.5-2.4); Potassium 4.1 mmol/L (3.5-5.5); Sodium 135 mmol/L (135-145)
--- NOTE | 2023-09-15 14:05 | P.PN ---
Subjective Progress Note Date: 09/15/23 No acute overnight event, is having a fever of 101 this morning. White count is down to 15.8 from 26.7. Urine cultures growing gram-negative bacilli. Denies any flank pain, dysuria or gross hematuria Objective - Vital Signs Vital signs: Vital Signs Temp 98.6 F 09/15/23 07:05 Pulse 94 09/15/23 07:05 Resp 18 09/15/23 07:05 BP 127/83 09/15/23 07:05 Pulse Ox 99 09/15/23 07:05 FiO2 Intake & Output 09/14/23 09/15/23 09/15/23 18:59 06:59 18:59 Intake Total 1200 Balance 1200 Intake: Intake, IV Titration 1200 Amount Sodium Chloride 0.9% 1, 1200 000 ml @ 130 mls/hr IV . Q7H42M [facility] Rx#:[id number] Other: Voiding Method Toilet # Voids 2 # Bowel Movements 4 - Constitutional General appearance: Present: no acute distress - Gastrointestinal General gastrointestinal: Present: soft. Absent: distended, tenderness - Psychiatric Psychiatric: Present: A&O x's 3 - Labs CBC & Chem 7: 09/15/23 06:03 09/15/23 06:03 Labs: Abnormal Lab Results - Last 24 Hours (Table) 09/15/23 09/15/23 Range/Units 06:03 06:03 WBC 15.80 H (4.50-10.00) X 10*3/uL RBC 4.27 L (4.40-5.60) X 10*6/uL Hgb 12.8 L (13.0-17.0) g/dL Hct 37.4 L (39.6-50.0) % Immature Gran # 0.08 H (0.00-0.04) X 10*3/uL Neutrophils # 13.12 H (1.80-7.70) X 10*3/uL Monocytes # 1.55 H (0.20-1.00) X 10*3/uL Eosinophils # 0 L (0.04-0.35) X 10*3/uL Calcium 8.1 L (8.7-10.3) mg/dL Microbiology - Last 24 Hours (Table) 09/13/23 17:10 Blood Culture - Preliminary Blood 09/13/23 16:50 Blood Culture - Preliminary Blood 09/13/23 15:16 Urine Culture - Preliminary Urine,Voided Gram Neg Bacilli Assessment and Plan Assessment: 32-year-old male admitted to the hospital status post left-sided ureteroscopy. Urine analysis is consistent with a UTI. WBC is trending down to 15.8 from 26.7 this morning he remains febrile at 101. Urine cultures growing gram-negative bacilli -Will continue with IV ceftriaxone -Follow-up on urine and blood culture -Keep stent in place. Stent is left on string, will plan on removing the stents once patient is afebrile for greater than 24 hours
[2023-09-15] MEDS: FAMOTIDINE 20 MG/2 ML VIAL IV SCH (19:59)
[2023-09-15] MEDS: HEPARIN SODIUM,PORCINE 5,000 UNIT/ML 1 ML VIAL SQ SCH (20:41)
[2023-09-16] MEDS: SODIUM CHLORIDE 0.9% 1,000 ML IV SCH ×4 (00:20→22:32)
[2023-09-16] MEDS: HEPARIN SODIUM,PORCINE 5,000 UNIT/ML 1 ML VIAL SQ SCH ×2 (08:14→22:31)
[2023-09-16] MEDS: FAMOTIDINE 20 MG/2 ML VIAL IV SCH ×2 (08:14→22:31)
--- NOTE | 2023-09-16 08:35 | P.PN ---
Subjective Progress Note Date: 09/16/23 The patient is in the hospital postoperatively from a ureteroscopic stone manipulation. He did have an elevated temperature which is defervesced. His white count on admission is 26,015 yesterday. He is feeling much better. I anticipate discharge in 24 hours Objective - Vital Signs Vital signs: Vital Signs Temp 98.2 F 09/16/23 02:21 Pulse 69 09/16/23 02:21 Resp 16 09/16/23 02:21 BP 138/82 09/16/23 02:21 Pulse Ox 99 09/16/23 02:21 FiO2 Intake & Output 09/15/23 09/16/23 09/16/23 18:59 06:59 18:59 Intake Total 1200 2040 Balance 1200 2040 Intake: Intake, IV Titration 1200 1560 Amount Sodium Chloride 0.9% 1, 1200 1560 000 ml @ 130 mls/hr IV . Q7H42M [facility] Rx#:[id number] Oral 480 Other: Voiding Method Toilet # Voids 3 # Bowel Movements 1 - Labs CBC & Chem 7: 09/15/23 06:03 09/15/23 06:03 Labs: Abnormal Lab Results - Last 24 Hours (Table) 09/15/23 09/15/23 Range/Units 06:03 06:03 WBC 15.80 H (4.50-10.00) X 10*3/uL RBC 4.27 L (4.40-5.60) X 10*6/uL Hgb 12.8 L (13.0-17.0) g/dL Hct 37.4 L (39.6-50.0) % Immature Gran # 0.08 H (0.00-0.04) X 10*3/uL Neutrophils # 13.12 H (1.80-7.70) X 10*3/uL Monocytes # 1.55 H (0.20-1.00) X 10*3/uL Eosinophils # 0 L (0.04-0.35) X 10*3/uL Calcium 8.1 L (8.7-10.3) mg/dL Microbiology - Last 24 Hours (Table) 09/13/23 17:10 Blood Culture - Preliminary Blood 09/13/23 16:50 Blood Culture - Preliminary Blood 09/13/23 15:16 Urine Culture - Final Urine,Voided Pseudomonas aeruginosa Assessment and Plan Assessment: Impression: Postoperative stone manipulation fever resolving Recommendations continue with antibiotics discharged home probably in 24 hours
--- NOTE | 2023-09-16 10:03 | P.CONS ---
History of Present Illness - Reason for Consult Consult date: 09/15/23 Fever Requesting physician: Librado E Sheet - Chief Complaint Fever x 2 days - History of Present Illness This is a telehealth visit Patient is a 32-year-old male with a past medical history significant for reflux patient recently underwent left sided ureteroscopy with laser on September 10, patient subsequently did well however presenting to the ER on September 13, 2023 for evaluation of fever that apparently has been going on for a day or 2 before presentation to the hospital patient denies having any headache or URI symptoms no chest pain shortness of breath or cough did have some nausea but no vomiting and complaining of some left flank pain mild to moderate intensity without radiation denies having any diarrhea did have some burning of urine but no hematuria with the symptoms the patient present to the hospital on arrival to the ER the patient did have a white count of 16,000 which is likely up to 26,000 yesterday however is down to 15,000 today patient did have a normal creatinine no symptoms mildly elevated did have a positive UA influenza RSV CO VID testing was negative patient was started on ceftriaxone infectious disease was consulted for further management of antibiotic therapy patient did have a CT of abdominal pelvis moderate left-sided hydronephrosis with nonobstructive mid left ureteral stone patient has been evaluated by urology recommended continuing current treatment and no surgical intervention infectious was consulted because of sepsis secondary to UTI and antibiotic therapy Review of Systems Positive point and negatives has been mentioned in the HPI, complete review of systems was performed and all other systems are negative Past Medical History Past Medical History: GERD/Reflux Additional Past Medical History / Comment(s): kidney stones-possibly might have passed something but not sure History of Any Multi-Drug Resistant Organisms: None Reported Past Surgical History: No Surgical Hx Reported Additional Past Surgical History / Comment(s): wisdom teeth removed Past Anesthesia/Blood Transfusion Reactions: Postoperative Nausea & Vomiting (PONV) Additional Past Anesthesia/Blood Transfusion Reaction / Comm: nauseated after wisdom teeth Past Psychological History: Anxiety, Depression Smoking Status: Never smoker Past Alcohol Use History: Occasional Past Drug Use History: None Reported Medications and Allergies Home Medications Medication Instructions Recorded Confirmed Type Multivitamins, Thera [Multivitamin 1 tab PO DAILY 01/23/18 09/13/23 History (formulary)] Cholecalciferol [Vitamin D3 (25 25 mcg PO DAILY 10/13/20 09/13/23 History Mcg = 1000 Iu)] Omeprazole 20 mg PO DAILY 10/13/20 09/13/23 History HYDROcodone/APAP 5-325MG [[place] 1 tab PO Q6HR PRN 3 Days #12 tab 09/09/23 09/13/23 Rx 5-325] Ketorolac [Toradol] 10 mg PO Q6HR PRN #15 tab 09/10/23 09/13/23 Rx Ciprofloxacin HCl [Cipro] 500 mg PO Q12HR 10 Days #20 tab 09/17/23 Rx Allergies Allergy/AdvReac Type Severity Reaction Status Date / Time No Known Allergies Allergy Verified 09/13/23 16:42 Physical Exam Vitals: Vital Signs Temp Pulse Resp BP Pulse Ox 09/15/23 12:40 100.6 F H 105 H 18 126/82 99 09/15/23 07:05 98.6 F 94 18 127/83 99 09/15/23 04:19 98.4 F 92 125/75 09/15/23 03:25 99.6 F 09/15/23 02:00 101.1 F H 123 H 20 150/95 99 09/14/23 20:00 18 09/14/23 19:46 98.0 F 84 18 114/77 97 Intake and Output 09/15/23 09/15/23 09/15/23 06:59 14:59 22:59 Intake Total 1200 Balance 1200 Intake: Intake, IV Titration 1200 Amount Sodium Chloride 0.9% 1, 1200 000 ml @ 130 mls/hr IV . Q7H42M [facility] Rx#:[id number] Middle-age male lying in bed in no distress Respiratory system unlabored breathing decreased breath sound the base Heart S1-S2 regular Abdominal soft no tenderness Extremities no edema feet Exam completed with the help of PILOT SAF[employer]Y INSPECTOR Results CBC & Chem 7: 09/17/23 06:00 09/17/23 06:00 Labs: Abnormal Lab Results - Last 24 Hours (Table) 09/15/23 09/15/23 Range/Units 06:03 06:03 WBC 15.80 H (4.50-10.00) X 10*3/uL RBC 4.27 L (4.40-5.60) X 10*6/uL Hgb 12.8 L (13.0-17.0) g/dL Hct 37.4 L (39.6-50.0) % Immature Gran # 0.08 H (0.00-0.04) X 10*3/uL Neutrophils # 13.12 H (1.80-7.70) X 10*3/uL Monocytes # 1.55 H (0.20-1.00) X 10*3/uL Eosinophils # 0 L (0.04-0.35) X 10*3/uL Calcium 8.1 L (8.7-10.3) mg/dL Microbiology - Last 24 Hours (Table) 09/13/23 17:10 Blood Culture - Preliminary Blood 09/13/23 16:50 Blood Culture - Preliminary Blood 09/13/23 15:16 Urine Culture - Preliminary Urine,Voided Gram Neg Bacilli Assessment and Plan (1) Sepsis Status: Acute Code(s): A41.9 - SEPSIS, UNSPECIFIED ORGANISM SNOMED Code(s): 34749483 (2) UTI (urinary tract infection) Status: Acute Code(s): N39.0 - URINARY TRACT INFECTION, SITE NOT SPECIFIED SNOMED Code(s): 69751072 Plan: 1patient presented to hospital with sepsis in this patient who did have fever elevated white count patient did have recent left kidney intervention for the kidney stones with a positive UA and there was evidence of left-sided hydronephrosis likely the source of the sepsis and likely from enteric gram- negative pathogen 2we will keep the patient Rocephin in view of improvement in his fever pattern as well as improvement in the white count 3antibiotic will be adjusted on the basis of final culture Family at the bedside questions were answered We will follow on clinical condition and cultures to further adjust medication if needed Thank you for this consultation we will follow the patient along with you Dictation was produced using [employer] dictation software. please excuse any grammatical, word or spelling errors. Time with Patient: Less than 30
[2023-09-16] MEDS: CEFEPIME 2 GM in SODIUM CHLORIDE 0.9% 100 ML IVPB SCH ×3 (10:21→22:32)
--- NOTE | 2023-09-16 16:53 | P.PN ---
Subjective This is a pleasant 32 years old male with past medical history of left kidney stone. Underwent left lithotripsy associated with left ureterostomy and stent placement He was discharged last Saturday after the procedure. His been having diarrhea Orellana next day he started having fever for the last 2 days before he decides to come to the hospital He is complaining of from some mild epigastric discomfort which is better now, And last time and this morning, however his abdomen looks soft with no tenderness today. His been complaining of from diarrhea he had about 6 bouts of loose bowel movement last night and into this morning No vomiting but he has poor appetite He denies chest pain or dyspnea, no headache dizziness weakness or numbness. He denies dysuria urgency or other urinary complaints His nonsmoker, no illicit drugs. Drinks alcohol occasionally On admission he had a fever of 102.3. Restoril Vitas looks stable He had leukocytosis of 16.7, rest of CBC, BMP and liver enzymes were unremarkable Blood cultures pending Urine analysis suspicious for infection Influenza A and type B, RSV, SARS (coronavirus) are and detected No imaging done of the abdomen: Chest x-ray: No acute process. Patient currently is covered with antibiotic Rocephin 09/15/2023 Patient still looks tired but no specific complaints, he is fully oriented He vomited once this morning Is complaining of from hemorrhoids Physical pain from dysuria He had fever of 101.1 today He had a fever of 101.1 today Leukocytosis 26.7 yesterday Moderate elevated liver enzymes magnesium is low been replaced yesterday Repeat labs from today pending Urine culture, gram-negative bacilli, blood cultures pending Patient remains on normal saline with 30 mL/h and ceftriaxone [address] of the abdomen and pelvis showing moderate left hydronephrosis with nonobstructing 0.3 cm x 12.2 cm left ureteral stone with diverticulosis but no diverticulitis 09/16/2023 Patient is admitted for acute urinary tract infection and pyelonephritis status post recent stent placement for his left ureterostomy and patient is followed closely by neurology and infectious disease team Urine culture came back positive for pseudomonas. Patient continued with antibiotic which was adjusted to cefepime Blood culture is negative Leukocytosis is improving down to 15,000 Patient thinks he is not ready for discharge today Urologist team recommended further 24-hour monitoring Possible discharge in 24-48 hours if he keeps improving Objective - Vital Signs Vital signs: Vital Signs Temp 98.4 F 09/16/23 07:24 Pulse 76 09/16/23 07:24 Resp 19 09/16/23 07:24 BP 131/82 09/16/23 07:24 Pulse Ox 97 09/16/23 07:24 FiO2 Intake & Output 09/15/23 09/16/23 09/16/23 18:59 06:59 18:59 Intake Total 1200 2040 Balance 1200 2040 Intake: Intake, IV Titration 1200 1560 Amount Sodium Chloride 0.9% 1, 1199 1560 000 ml @ 130 mls/hr IV . Q7H42M [facility] Rx#:[id number] Oral 480 Other: Voiding Method Toilet Toilet # Voids 3 1 # Bowel Movements 1 1 - Exam -GENERAL: The patient is alert and oriented x3, not in any acute distress. Well developed, well nourished. Generally weak HEENT: Pupils are round and equally reacting to light. EOMI. No scleral icterus. No conjunctival pallor. Normocephalic, atraumatic. No pharyngeal erythema. No thyromegaly. CARDIOVASCULAR: S1 and S2 present. No murmurs, rubs, or gallops. PULMONARY: Chest is clear to auscultation, no wheezing , no crackles. ABDOMEN: Soft, nontender, nondistended, normoactive bowel sounds. No palpable organomegaly. MUSCULOSKELETAL: No joint swelling or deformity. EXTREMITIES: No cyanosis, clubbing, or pedal edema. NEUROLOGICAL: Gross neurological examination did not reveal any focal deficits. SKIN: No rashes. no petechiae. - Labs CBC & Chem 7: 09/15/23 06:03 09/15/23 06:03 Labs: Abnormal Lab Results - Last 24 Hours (Table) 09/15/23 Range/Units 06:03 Calcium 8.1 L (8.7-10.3) mg/dL Microbiology - Last 24 Hours (Table) 09/13/23 17:10 Blood Culture - Preliminary Blood 09/13/23 16:50 Blood Culture - Preliminary Blood 09/13/23 15:16 Urine Culture - Final Urine,Voided Pseudomonas aeruginosa Assessment and Plan Assessment: Acute pyelonephritis/UTI Left kidney stone, Recent history of left lithotripsy and left ureterostomy and stent placement few days prior to hospitalization Acute diarrhea and mild epigastric pain, reactive. Improved Sepsis with fever and leukocytosis secondary to above Plan: Continue with ceftriaxone Continue with normal saline Urology consult Infectious dis consult Follow-up urine and blood culture Labs and medication were reviewed.. Continue same treatment. Continue with symptomatic treatment. Resume home medication. Monitor labs and vitals. DVT and GI prophylaxis. Further recommendations as per clinical course of the patient DVT prophylaxis: Subcutaneous heparin GI Prophylaxis: Pepcid Prognosis is guarded
--- NOTE | 2023-09-16 21:55 | P.PN ---
Subjective Progress Note Date: 09/16/23 Principal diagnosis: Sepsis and complicated UTI Patient is a 32-year-old male with a past medical history significant for reflux patient recently underwent left sided ureteroscopy with laser on September 10, now presented to the hospital with left-sided flank pain fever did have elevated white count has been diagnosed with a complicated UTI. On today's evaluation that is 09/16/2023 patient did have a low-grade fever last evening however the patient is afebrile this morning the patient is breathing comfortably on room air patient mention left-sided flank pain has improved no nausea no vomiting no chest pain shortness of breath or cough and no diarrhea patient complaining of some hemorrhoidal problems and requesting for cream. Patient white count is down to 15.80, creatinine 0.8 urine has been finalized with Pseudomonas blood culture has been negative Objective - Vital Signs Vital signs: Vital Signs Temp 98.4 F 09/16/23 07:24 Pulse 76 09/16/23 07:24 Resp 19 09/16/23 07:24 BP 131/82 09/16/23 07:24 Pulse Ox 97 09/16/23 07:24 FiO2 Intake & Output 09/15/23 09/16/23 09/16/23 18:59 06:59 18:59 Intake Total 1200 2040 Balance 1200 2040 Intake: Intake, IV Titration 1200 1560 Amount Sodium Chloride 0.9% 1, 1200 1560 000 ml @ 130 mls/hr IV . Q7H42M [facility] Rx#:[id number] Oral 480 Other: Voiding Method Toilet Toilet # Voids 3 1 # Bowel Movements 1 1 - Exam GENERAL DESCRIPTION: Middle-age male lying in bed in no distress RESPIRATORY SYSTEM: Unlabored breathing , decreased breath sounds at bases HEART: S1 S2 regular rate and rhythm , ABDOMEN: Soft , no tenderness EXTREMITIES: No edema feet - Labs CBC & Chem 7: 09/15/23 06:03 09/15/23 06:03 Labs: Abnormal Lab Results - Last 24 Hours (Table) 09/15/23 09/15/23 Range/Units 06:03 06:03 WBC 15.80 H (4.50-10.00) X 10*3/uL RBC 4.27 L (4.40-5.60) X 10*6/uL Hgb 12.8 L (13.0-17.0) g/dL Hct 37.4 L (39.6-50.0) % Immature Gran # 0.08 H (0.00-0.04) X 10*3/uL Neutrophils # 13.12 H (1.80-7.70) X 10*3/uL Monocytes # 1.55 H (0.20-1.00) X 10*3/uL Eosinophils # 0 L (0.04-0.35) X 10*3/uL Calcium 8.1 L (8.7-10.3) mg/dL Microbiology - Last 24 Hours (Table) 09/13/23 17:10 Blood Culture - Preliminary Blood 09/13/23 16:50 Blood Culture - Preliminary Blood 09/13/23 15:16 Urine Culture - Final Urine,Voided Pseudomonas aeruginosa Assessment and Plan (1) Sepsis Current Visit: Yes Status: Acute Code(s): A41.9 - SEPSIS, UNSPECIFIED ORGANISM SNOMED Code(s): 83853852 (2) Pseudomonas aeruginosa infection Current Visit: Yes Status: Acute Code(s): A49.8 - OTHER BACTERIAL INFECTIONS OF UNSPECIFIED SITE SNOMED Code(s): 72847142 (3) UTI (urinary tract infection) Current Visit: Yes Status: Acute Code(s): N39.0 - URINARY TRACT INFECTION, SITE NOT SPECIFIED SNOMED Code(s): 81611909 Plan: 1patient presented to hospital with sepsis in this patient who did have fever elevated white count patient did have recent left kidney intervention for the kidney stones with a positive UA and there was evidence of left-sided hydronep hrosis likely the source of the sepsis and likely from enteric gram-negative pathogen 2blood culture has been negative urine has been finalized with the Pseudomonas 3-we will discontinue Rocephin and start the patient on cefepime 2 g every 8 hours hopefully will be able to finish therapy with oral Cipro multiple question concern answered Dictation was produced using [employer] software. please excuse any grammatical, word or spelling errors. Time with Patient: Less than 30
[2023-09-16] MEDS: BENZOCAINE 20% HEMORRHOIDAL OINT 28GM RECTAL SCH (22:32)
[2023-09-17] MEDS: SODIUM CHLORIDE 0.9% 1,000 ML IV SCH ×2 (05:24→07:30)
[2023-09-17] MEDS: CEFEPIME 2 GM in SODIUM CHLORIDE 0.9% 100 ML IVPB SCH (07:49)
[2023-09-17] MEDS: BENZOCAINE 20% HEMORRHOIDAL OINT 28GM RECTAL SCH (07:50)
[2023-09-17] MEDS: FAMOTIDINE 20 MG/2 ML VIAL IV SCH (07:50)
[2023-09-17] MEDS: HEPARIN SODIUM,PORCINE 5,000 UNIT/ML 1 ML VIAL SQ SCH (07:50)
[2023-09-17 08:18] VITALS: BP 148/95; PULSE 58; RESP 16; TEMP 98.1
[2023-09-17 09:00] LABS: Basophils # (A) 0.06 X 10*3/uL (0.00-0.10); Basophils % (A) 0.9 %; Eosinophils # (A) 0.06 X 10*3/uL (0.04-0.35); Eosinophils % (A) 0.9 %; HCT 39.6 % (39.6-50.0); HGB 13.3 g/dL (13.0-17.0); Lymphocytes # (A) 1.61 X 10*3/uL (0.90-5.00); Lymphocytes % (A) 25.4 %; MCH 29.3 pg (27.0-32.0); MCHC 33.6 g/dL (32.0-37.0); MCV 87.2 FL (80.0-97.0); Mean Platelet Volume 10.6 FL (9.5-12.2); Monocytes # (A) 0.67 X 10*3/uL (0.20-1.00); Monocytes % (A) 10.6 %; NRBC Per 100 WBC 0 X 10*3/uL (0.00-0.01); Neutrophils # (A) 3.85 X 10*3/uL (1.80-7.70); Neutrophils % (A) 60.9 %; Platelet Count 460 X 10*3/uL (140-440); RBC 4.54 X 10*6/uL (4.40-5.60); WBC 6.33 X 10*3/uL (4.50-10.00)
[2023-09-17 09:37] LABS: BUN/Creat Ratio 10.62 Ratio (12.00-20.00); Blood Urea Nitrogen 8.5 mg/dL (9.0-27.0); Calcium 9.2 mg/dL (8.7-10.3); Carbon Dioxide 23.4 mmol/L (21.6-31.8); Chloride 105 mmol/L (96-109); Glucose 94 mg/dL (70-110); Sodium 140 mmol/L (135-145)
--- NOTE | 2023-09-17 13:48 | P.DS ---
Providers Date of admission: 09/13/23 17:54 Attending physician: Zacarias Jackson Consults: 09/13/23 17:54 Consult Physician Routine Consulting Provider: Louie David Consult Reason/Comments: known Do you want consulting provider notified?: Yes 09/14/23 12:47 Consult Physician Routine Consulting Provider: Theresa Rehman Consult Reason/Comments: fever Do you want consulting provider notified?: Yes Primary care physician: Ericka Salas Hospital Course: Diagnoses Acute pyelonephritis/UTI secondary to Pseudomonas Left kidney stone, Recent history of left lithotripsy and left ureterostomy and stent placement few days prior to hospitalization Sepsis with fever and leukocytosis secondary to above. Resolved Acute diarrhea and mild epigastric pain, reactive. Improved Hospital course: This is a pleasant 32 years old male with past medical history of left kidney stone. Underwent left lithotripsy associated with left ureterostomy and stent placement He was discharged last Saturday after the procedure. ,next day he started having fever for the last 2 days . Patient was found to have acute urinary tract infection with acute pyelonephritis secondary to Pseudomonas per urine culture. Patient evaluated by urologist and infectious disease team he was treated with IV antibiotics including cefepime and this can be switched to oral Ceftin 10 days to which Pseudomonas is sensitive per culture and sensitivity. Discharge antibiotics were per discussions with infectious disease team The patient is asymptomatic today no chest pain or dyspnea. No other urinary complaints. Fever subsided. He tolerates diet well on patient agrees to go home today. Patient was cleared for discharge by urologist and infectious disease team Problems and management plan were discussed with the patient and he verbalized understanding and acceptance Patient was found stable and can be discharged home in guarded prognosis however he needs follow-up as an outpatient. Patient was instructed to follow up with PCP Dr. Salas within one week and patient agrees with the appointments made for him and 09/19 that he is to follow up with Patient was instructed to follow up with urologist Dr. david in 1 week after discharge and he agrees to call and make appointment Physical exam Gen: patient is a AAOx3, no distress CVS: S1-S2, RRR, no murmur Lungs: B/L CTA, no wheezing Abdomen: soft, no distention, no tenderness, positive bowel sounds Extremity: no leg edema or induration Time spent more than 35 minutes Patient Condition at Discharge: Fair Plan - Discharge Summary New Discharge Prescriptions: New Ciprofloxacin HCl [Cipro] 500 mg PO Q12HR 10 Days #20 tab Continue Multivitamins, Thera [Multivitamin (formulary)] 1 tab PO DAILY Omeprazole 20 mg PO DAILY Cholecalciferol [Vitamin D3 (25 Mcg = 1000 Iu)] 25 mcg PO DAILY HYDROcodone/APAP 5-325MG [[place] 5-325] 1 tab PO Q6HR PRN 3 Days #12 tab PRN Reason: Severe Pain Ketorolac [Toradol] 10 mg PO Q6HR PRN #15 tab PRN Reason: Pain Discharge Medication List Multivitamins, Thera [Multivitamin (formulary)] 1 tab PO DAILY 01/23/18 [History] Cholecalciferol [Vitamin D3 (25 Mcg = 1000 Iu)] 25 mcg PO DAILY 10/13/20 [History] Omeprazole 20 mg PO DAILY 10/13/20 [History] HYDROcodone/APAP 5-325MG [[place] 5-325] 1 tab PO Q6HR PRN 3 Days #12 tab 09/09/23 [Rx] Ketorolac [Toradol] 10 mg PO Q6HR PRN #15 tab 09/10/23 [Rx] Ciprofloxacin HCl [Cipro] 500 mg PO Q12HR 10 Days #20 tab 09/17/23 [Rx] Follow up Appointment(s)/Referral(s): Ericka Salas DO [Primary Care Provider] - 09/19/23 11:00 am Louie David MD [STAFF PHYSICIAN] - 1 Week Activity/Diet/Wound Care/Special Instructions: heart healthy diet activity is restricted till you see your doctor\ Discharge Disposition: HOME SELF-CARE
--- NOTE | 2023-09-23 12:18 | CDI ---
Documentation Clarification Form Date: 09/23/2023 10:55:25 AM From: Tiara Deal RN, CCDS Phone: [phone] Admit Date: 09/13/2023 05:54:00 PM Patient Name: Ervin Marcial Visit Number: [id number] Discharge Date: 09/17/2023 01:33:00 PM ATTENTION: The Clinical Documentation Specialists (CDI) and [facility] Coding Staff appreciate your assistance in clarifying documentation. Please respond to the clarification below the line at the bottom and electronically sign. The CDI & [facility] Coding staff will review the response and follow-up if needed. Please note: Queries are made part of the Legal Health Record. If you have any questions, please contact the author of this message via ITS. Dr. Pavon E Sheet Conflicting documentation has been found in the medical record related to cause of sepsis. As attending physician, please provide clarification. 09/14 /H/P and subsequent discharge summary; Acute pyelonephritis, UTI secondary to Pseudomonas Left kidney stone, recent history of left lithotripsy and left ureterostomy and stent placement few days prior to hospitalization. Sepsis with fever and leukocytosis secondary to above. ID Consult and subsequent documentation: patient presented to hospital with sepsis in this patient who did have fever elevated white count patient did have recent left kidney intervention for the kidney stones with a positive UA and there was evidence of left-sided hydronephrosis likely the source of the sepsis and likely from enteric gram-negative pathogen. 09/16 Urology: status post left-sided ureteroscopy, Urine analysis is consistent with a UTI. Keep stent in place. History/Risk Factors: GERD/Reflux, kidney stones- Clinical Indicators: 32-year-old with a recent left kidney stone. He underwent a left lithotripsy associated with left ureterostomy and stent placement. He was discharged, but the next day he started running a fever. He was found to have an acute UTI and acute pyelonephritis secondary to pseudomonas per urine culture. On admission WBC 26.7 VS 141/93 121 20 102.9 101.7 09/14 CT Scan: Kidneys: There is a moderate left hydronephrosis. This extends to a proximal left ureter 0.8 cm obstructing ureteral stone. Non obstructing left renal stone. Treatment: Rocephin 2 GM IVPB 09/13 then 1 GM IVPB 08/25-09/16 Cefepime 2GM IVPB Q 8 HRS 09/15-09/16 .9NS 1,000 ML Bolus 09/13 .9 NS 500 ML Bolus 09/[address] Please clarify which diagnosis is most appropriate: [ x ] Sepsis due postoperative urethroscopy stone manipulation and UTI. [ ] Sepsis due to Left hydronephrosis with UTI. [ ] Other (please specify) [ ] Unable to determine (Template Last Revised: October 2020) MTDD
--- NOTE | 2023-09-24 15:33 | P.PN ---
Subjective Progress Note Date: 09/17/23 Principal diagnosis: Sepsis and complicated UTI Patient is a 32-year-old male with a past medical history significant for reflux patient recently underwent left sided ureteroscopy with laser on September 10, now presented to the hospital with left-sided flank pain fever did have elevated white count has been diagnosed with a complicated UTI. On today's evaluation that is 09/17/2023, the patient continues to be afebrile, patient is breathing comfortably on room air, the patient denies chest pain shortness of breath and no significant cough, patient denies nausea no vomiting, no abdominal pain and no diarrhea. Patient white count normalized to 6.33, creatinine 0.8 urine has been finalized with Pseudomonas blood culture has been negative Objective - Vital Signs Vital signs: Vital Signs Temp 98.1 F 09/17/23 07:49 Pulse 58 L 09/17/23 07:49 Resp 16 09/17/23 07:49 BP 148/95 09/17/23 07:49 Pulse Ox 97 09/17/23 07:49 FiO2 Intake & Output 09/16/23 09/17/23 09/17/23 18:59 06:59 18:59 Other: Voiding Method Toilet Toilet # Voids 4 5 1 # Bowel Movements 1 - Exam GENERAL DESCRIPTION: Middle-age male lying in bed in no distress RESPIRATORY SYSTEM: Unlabored breathing , decreased breath sounds at bases HEART: S1 S2 regular rate and rhythm , ABDOMEN: Soft , no tenderness EXTREMITIES: No edema feet - Labs CBC & Chem 7: 09/17/23 06:00 09/17/23 06:00 Labs: Abnormal Lab Results - Last 24 Hours (Table) 09/17/23 09/17/23 Range/Units 06:00 06:00 Plt Count 460 H (140-440) X 10*3/uL Immature Gran # 0.08 H (0.00-0.04) X 10*3/uL BUN 8.5 L (9.0-27.0) mg/dL BUN/Creatinine Ratio 10.62 L (12.00-20.00) Ratio Microbiology - Last 24 Hours (Table) 09/13/23 17:10 Blood Culture - Preliminary Blood 09/13/23 16:50 Blood Culture - Preliminary Blood 09/14/23 15:20 Stool Culture - Preliminary Stool Assessment and Plan (1) Sepsis Status: Acute Code(s): A41.9 - SEPSIS, UNSPECIFIED ORGANISM SNOMED Code(s): 02995296 (2) Pseudomonas aeruginosa infection Status: Acute Code(s): A49.8 - OTHER BACTERIAL INFECTIONS OF UNSPECIFIED SITE SNOMED Code(s): 78724916 (3) UTI (urinary tract infection) Status: Acute Code(s): N39.0 - URINARY TRACT INFECTION, SITE NOT SPECIFIED SNOMED Code(s): 63131247 Plan: 1patient presented to hospital with sepsis in this patient who did have fever elevated white count patient did have recent left kidney intervention for the kidney stones with a positive UA and there was evidence of left-sided hydronephrosis likely the source of the sepsis and likely from enteric gram- negative pathogen 2blood culture has been negative urine has been finalized with the Pseudomonas 3-patient has shown clinical improvement on cefepime 2 g every 8 hours and white count has normalized he will finish therapy with oral Cipro discussed with the admitting team working on discharge Dictation was produced using [employer] dictation software. please excuse any grammatical, word or spelling errors. Time with Patient: Less than 30
== END 2023-09-17 13:33 | disposition home or self-care (01) | DRG 862 ==
LOC: EC 13:55 → 4SSUR 17:54
PROVIDERS: ADMIT Hospitalist; ATTEND Hospitalist
DX: T81.44XA Sepsis following a procedure, initial encounter (principal); A41.52 Sepsis due to Pseudomonas; N13.6 Pyonephrosis; N20.2 Calculus of kidney with calculus of ureter; F41.9 Anxiety disorder, unspecified; F32.A Depression, unspecified; K21.9 Gastro-esophageal reflux disease without esophagitis; R19.7 Diarrhea, unspecified; B96.5 Pseudomonas (aeruginosa) (mallei) (pseudomallei) as the cause of diseases classified elsewhere; N20.0 Calculus of kidney; K57.90 Diverticulosis of intestine, part unspecified, without perforation or abscess without bleeding; K64.9 Unspecified hemorrhoids; Z11.52 Encounter for screening for COVID-19; Z79.899 Other long term (current) drug therapy
CPT/HCPCS: 36415; 71045; 74176; 80048; 80053; 81001; 82272; 83605; 83630; 83735; 84100; 85025; 87040; 87045; 87046; 87077; 87086; 87186; 87324; 87636; 96361; 96365; 96375; 99285

== ENCOUNTER 2023-10-02 18:19 | Emergency (ER) | payer BC ==
[2023-10-02 18:39] VITALS: RESP 18; TEMP 98.4
--- NOTE | 2023-10-02 19:06 | ED ---
Abdominal Pain HPI - General Source: patient, RN notes reviewed Mode of arrival: ambulatory Limitations: no limitations - History of Present Illness MD Complaint: abdominal pain <Michelle Francis - Last Filed: 10/02/23 19:03> <Ajit Rivas - Last Filed: 10/03/23 02:52> - General Chief Complaint: Abdominal Pain Stated Complaint: abd pain Time Seen by Provider: 10/02/23 19:04 - History of Present Illness Initial Comments: This is a 32-year-old male who presents to the emergency department for abdominal pain. Reports right lower quadrant abdominal pain starting last nigh t. Denies any radiation of symptoms. Pain is worse with bowel movements. He was just discharged a couple of weeks ago for a kidney stone on the left that required surgical intervention. Denies any current urinary symptoms. Also denies any fevers/chills. (Michelle Francis) 32-year-old male presenting with chief complaint of abdominal pain. He states that for the last day he has had right lower quadrant pain. Pain stems from the umbilicus into the right lower quadrant. He also has worsening pain with bowel movements. No hematochezia or melena. No nausea or vomiting. No fevers or chills. No dysuria, hematuria, urgency, frequency, flank pain. No chest pain or difficulty breathing. (Ajit Rivas) - Related Data Home Medications Medication Instructions Recorded Confirmed Multivitamins, Thera [Multivitamin 1 tab PO DAILY 01/23/18 09/13/23 (formulary)] Cholecalciferol [Vitamin D3 (25 25 mcg PO DAILY 10/13/20 09/13/23 Mcg = 1000 Iu)] Omeprazole 20 mg PO DAILY 10/13/20 09/13/23 Previous Rx's Medication Instructions Recorded HYDROcodone/APAP 5-325MG [Hickman 1 tab PO Q6HR PRN 3 Days #12 tab 09/09/23 5-325] Ketorolac [Toradol] 10 mg PO Q6HR PRN #15 tab 09/10/23 Ciprofloxacin HCl [Cipro] 500 mg PO Q12HR 10 Days #20 tab 09/17/23 Amoxic-Pot Clav 875-125Mg 1 tab PO BID 7 Days #14 tab 10/03/23 [Augmentin 875-125] Allergies Allergy/AdvReac Type Severity Reaction Status Date / Time No Known Allergies Allergy Verified 10/02/23 18:36 Review of Systems ROS Other: All systems not noted in ROS Statement are negative. <Michelle Francis - Last Filed: 10/02/23 19:03> ROS Other: All systems not noted in ROS Statement are negative. <Ajit Rivas - Last Filed: 10/03/23 02:52> ROS Statement: Those systems with pertinent positive or pertinent negative responses have been documented in the HPI. Past Medical History Past Medical History: GERD/Reflux Additional Past Medical History / Comment(s): kidney stones-possibly might have passed something but not sure History of Any Multi-Drug Resistant Organisms: None Reported Past Surgical History: No Surgical Hx Reported Additional Past Surgical History / Comment(s): wisdom teeth removed Past Anesthesia/Blood Transfusion Reactions: Postoperative Nausea & Vomiting (PONV) Additional Past Anesthesia/Blood Transfusion Reaction / Comment(s): nauseated after wisdom teeth Past Psychological History: Anxiety, Depression Smoking Status: Never smoker Past Alcohol Use History: Occasional Past Drug Use History: None Reported <Michelle Francis - Last Filed: 10/02/23 19:03> General Exam Limitations: no limitations <Michelle Francis - Last Filed: 10/02/23 19:03> Limitations: no limitations General appearance: alert, in no apparent distress Head exam: Present: atraumatic, normocephalic Eye exam: Present: normal appearance Neck exam: Present: normal inspection Respiratory exam: Present: normal lung sounds bilaterally. Absent: respiratory distress, wheezes, rales, rhonchi, stridor Cardiovascular Exam: Present: regular rate, normal rhythm, normal heart sounds. Absent: systolic murmur, diastolic murmur, rubs, gallop, clicks GI/Abdominal exam: Present: soft. Absent: distended, tenderness, guarding, rebound, rigid Neurological exam: Present: alert, oriented X3 Psychiatric exam: Present: normal affect, normal mood Skin exam: Present: warm, dry <Ajit Rivas - Last Filed: 10/03/23 02:52> - General Exam Comments Initial Comments: Visual Physical Exam Vital signs reviewed General: Well-appearing, nontoxic, no acute distress. Head: Normocephalic, atraumatic Eyes: PERRLA, EOMI ENT: Airway patent Chest: Nonlabored breathing Skin: No visual rash, normal skin tone Neuro: Alert and oriented 3 Musculoskeletal: No gross abnormalities (Michelle Francis) Course Vital Signs 10/02/23 10/02/23 18:33 22:47 Temperature 98.4 F 98.4 F Pulse Rate 74 73 Respiratory 18 18 Rate Blood Pressure 150/88 159/109 O2 Sat by Pulse 100 100 Oximetry Medical Decision Making <Michelle Francis - Last Filed: 10/02/23 19:03> - Lab Data Result diagrams: 10/02/23 19:31 10/02/23 19:31 <Ajit Rivas - Last Filed: 10/03/23 02:52> - Medical Decision Making I performed the QuickNote portion of this chart. Signed Michelle Francis PA-C. (Michelle Francis) Was pt. sent in by a medical professional or institution (DAMARIS Stone, PROFESSOR OF RELIGIOUS STUDIES, urgent care, hospital, or fpc...) When possible be specific @ -No Did you speak to anyone other than the patient for history (EMS, parent, family, police, friend...)? What history was obtained from this source @ -No Did you review nursing and triage notes (agree or disagree)? Why? @ -I reviewed and agree with nursing and triage notes Were old charts reviewed (outside hosp., previous admission, EMS record, old EKG, old radiological studies, urgent care reports/EKG's, fpc records)? Report findings @ -No old charts were reviewed Differential Diagnosis (chest pain, altered mental status, abdominal pain women, abdominal pain men, vaginal bleeding, weakness, fever, dyspnea, syncope, headache, dizziness, GI bleed, back pain, seizure, CVA, palpatations, mental health, musculoskeletal)? @ -MDM Differential Abdominal Pain Men: Appendicitis, cholecystitis, diverticulosis, ischemic bowel, pancreatitis, hepatitis, UTI, gastroenteritis, AAA, incarcerated hernia, bowel obstruction, constipation, inflammatory bowel, hepatitis, peptic ulcer disease, splenic infarction, perforated viscus, testicular torsion... This is not meant to be an all-inclusive list EKG interpreted by me (3pts min.). @ -As above X-rays interpreted by me (1pt min.). @ -None done CT interpreted by me (1pt min.). @ -CT shows diffuse left and sigmoid colon wall thickening with mild surrounding infiltration consistent with a nonspecific colitis. No evidence for diverticulitis. Appendix not identified. No secondary evidence for appendicitis. Enlarged fatty liver. Contracted with nonspecific wall thickening. Probable small noncalcified gallstones or sludge balls. No calcified stones. No ductal dilation. Correlation with the right upper and ultrasound is recommended when clinically appropriate U/S interpreted by me (1pt. min.). @ -None done What testing was considered but not performed or refused? (CT, X-rays, U/S, labs)? Why? @ -None What meds were considered but not given or refused? Why? @ -None Did you discuss the management of the patient with other professionals (professionals i.e. , PA, PROFESSOR OF RELIGIOUS STUDIES, lab, RT, psych nurse, social welfare clerk, account leader, teacher, security officer, welfare case worker)? Give summary @ -No Was smoking cessation discussed for >3mins.? @ -No Was critical care preformed (if so, how long)? @ -No Were there social determinants of health that impacted care today? How? (Homelessness, low income, unemployed, alcoholism, drug addiction, transportation, low edu. Level, literacy, decrease access to med. care, residential, rehab)? @ -No Was there de-escalation of care discussed even if they declined (Discuss DNR or withdrawal of care, Hospice)? DNR status @ -No What co-morbidities impacted this encounter? (DM, HTN, Smoking, COPD, CAD, Cancer, CVA, ARF, Chemo, Hep., AIDS, mental health diagnosis, sleep apnea, morbid obesity)? @ -None Was patient admitted / discharged? Hospital course, mention meds given and route, prescriptions, significant lab abnormalities, going to OR and other pertinent info. @ -32-year-old male presenting with chief complaint of abdominal pain. Pain present in the right lower quadrant. Workup is initiated by triage. Lab work shows no leukocytosis or anemia. CMP requires no action. Urine shows no infectious process or bleeding. Patient is then placed in exam room 20 and history and physical exam are performed. CT is obtained which shows evidence for colitis. While the appendix is not identified there are no secondary changes to suggest appendicitis. Patient is educated on today's findings. He will be treated for colitis with Augmentin. He has an appointment with his PCP on Saturday for follow-up. Discharged home. Follow-up with PCP. Report back to ER with any new or worsening symptoms. Discussed return parameters and answered all questions. Patient conveyed verbal understanding and agreed to the plan. I discussed this case in detail with my attending Dr. Cage Undiagnosed new problem with uncertain prognosis? @ -No Drug Therapy requiring intensive monitoring for toxicity (Heparin, Nitro, Insulin, Cardizem)? @ -No Were any procedures done? @ -No Diagnosis/symptom? @ -Colitis Acute, or Chronic, or Acute on Chronic? @ -Acute Uncomplicated (without systemic symptoms) or Complicated (systemic symptoms)? @ -Uncomplicated Side effects of treatment? @ -No Exacerbation, Progression, or Severe Exacerbation? @ -No Poses a threat to life or bodily function? How? (Chest pain, [place], [place], pneumonia, PE, COPD, DKA, ARF, appy, cholecystitis, CVA, Diverticulitis, Homicidal, Suicidal, threat to staff... and all critical care pts) @ -Unlikely (Ajit Rivas) - Lab Data Lab Results 10/02/23 10/02/23 10/02/23 Range/Units 19:31 19:31 19:31 WBC 6.0 (3.8-10.6) k/uL RBC 4.54 (4.30-5.90) m/uL Hgb 13.6 (13.0-17.5) gm/dL Hct 40.0 (39.0-53.0) % MCV 88.1 (80.0-100.0) fL MCH 30.0 (25.0-35.0) pg MCHC 34.1 (31.0-37.0) g/dL RDW 13.1 (11.5-15.5) % Plt Count 337 (150-450) k/uL MPV 7.9 Neutrophils % 45 % Lymphocytes % 42 % Monocytes % 8 % Eosinophils % 2 % Basophils % 1 % Neutrophils # 2.7 (1.3-7.7) k/uL Lymphocytes # 2.5 (1.0-4.8) k/uL Monocytes # 0.5 (0-1.0) k/uL Eosinophils # 0.1 (0-0.7) k/uL Basophils # 0.0 (0-0.2) k/uL Sodium 140 (137-145) mmol/L Potassium 3.8 (3.5-5.1) mmol/L Chloride 104 (98-107) mmol/L Carbon Dioxide 27 (22-30) mmol/L Anion Gap 9 mmol/L BUN 8 L (9-20) mg/dL Creatinine 0.84 (0.66-1.25) mg/dL Est GFR (CKD-EPI)AfAm >90 (>60 ml/min/1.73 sqM) Est GFR (CKD-EPI)NonAf >90 (>60 ml/min/1.73 sqM) Glucose 92 (74-99) mg/dL Plasma Lactic Acid Ruiz 0.7 (0.7-2.0) mmol/L Calcium 9.7 (8.4-10.2) mg/dL Total Bilirubin 0.8 (0.2-1.3) mg/dL AST 44 (17-59) U/L ALT 90 H (4-49) U/L Alkaline Phosphatase 97 (38-126) U/L Total Protein 7.3 (6.3-8.2) g/dL Albumin 4.6 (3.5-5.0) g/dL Urine Color Urine Appearance (Clear) Urine pH (5.0-8.0) Ur Specific [place] (1.001-1.035) Urine Protein (Negative) Urine Glucose (UA) (Negative) Urine Ketones (Negative) Urine Blood (Negative) Urine Nitrite (Negative) Urine Bilirubin (Negative) Urine Urobilinogen (<2.0) mg/dL Ur Leukocyte Esterase (Negative) 10/02/23 Range/Units 23:28 WBC (3.8-10.6) k/uL RBC (4.30-5.90) m/uL Hgb (13.0-17.5) gm/dL Hct (39.0-53.0) % MCV (80.0-100.0) fL MCH (25.0-35.0) pg MCHC (31.0-37.0) g/dL RDW (11.5-15.5) % Plt Count (150-450) k/uL MPV Neutrophils % % Lymphocytes % % Monocytes % % Eosinophils % % Basophils % % Neutrophils # (1.3-7.7) k/uL Lymphocytes # (1.0-4.8) k/uL Monocytes # (0-1.0) k/uL Eosinophils # (0-0.7) k/uL Basophils # (0-0.2) k/uL Sodium (137-145) mmol/L Potassium (3.5-5.1) mmol/L Chloride (98-107) mmol/L Carbon Dioxide (22-30) mmol/L Anion Gap mmol/L BUN (9-20) mg/dL Creatinine (0.66-1.25) mg/dL Est GFR (CKD-EPI)AfAm (>60 ml/min/1.73 sqM) Est GFR (CKD-EPI)NonAf (>60 ml/min/1.73 sqM) Glucose (74-99) mg/dL Plasma Lactic Acid Ruiz (0.7-2.0) mmol/L Calcium (8.4-10.2) mg/dL Total Bilirubin (0.2-1.3) mg/dL AST (17-59) U/L ALT (4-49) U/L Alkaline Phosphatase (38-126) U/L Total Protein (6.3-8.2) g/dL Albumin (3.5-5.0) g/dL Urine Color Yellow Urine Appearance Clear (Clear) Urine pH 5.5 (5.0-8.0) Ur Specific [place] 1.025 (1.001-1.035) Urine Protein Trace H (Negative) Urine Glucose (UA) Negative (Negative) Urine Ketones Negative (Negative) Urine Blood Negative (Negative) Urine Nitrite Negative (Negative) Urine Bilirubin Negative (Negative) Urine Urobilinogen <2.0 (<2.0) mg/dL Ur Leukocyte Esterase Negative (Negative) Disposition <Michelle Francis - Last Filed: 10/02/23 19:03> Is patient prescribed a controlled substance at d/c from ED?: No Time of Disposition: 00:58 <Ajit Rivas - Last Filed: 10/03/23 02:52> Clinical Impression: Colitis Disposition: HOME SELF-CARE Condition: Good Instructions (If sedation given, give patient instructions): Colitis (ED) Additional Instructions: Follow-up with PCP. Report back to ER with any new or worsening symptoms. Take medication as prescribed. Prescriptions: Amoxic-Pot Clav 875-125Mg [Augmentin 875-125] 1 tab PO BID 7 Days #14 tab Referrals: Ericka Currie DO [Primary Care Provider] - 1-2 days
[2023-10-02 19:53] LABS: Basophils % (A) 1 %; Eosinophils # (A) 0.1 k/uL (0-0.7); Eosinophils % (A) 2 %; HGB 13.6 gm/dL (13.0-17.5); Lymphocytes # (A) 2.5 k/uL (1.0-4.8); Lymphocytes % (A) 42 %; MCHC 34.1 g/dL (31.0-37.0); MCV 88.1 fL (80.0-100.0); Mean Platelet Volume 7.9; Monocytes # (A) 0.5 k/uL (0-1.0); Monocytes % (A) 8 %; Neutrophils # (A) 2.7 k/uL (1.3-7.7); Neutrophils % (A) 45 %; Platelet Count 337 k/uL (150-450); RBC 4.54 m/uL (4.30-5.90); RDW 13.1 % (11.5-15.5)
[2023-10-02 19:55] LABS: ALT 90 U/L (4-49); AST 44 U/L (17-59); African American GFR (CKD) >90 (>60 ml/min/1.73 sqM); Albumin 4.6 g/dL (3.5-5.0); Alkaline Phosphatase 97 U/L (38-126); Anion Gap 9 mmol/L; Blood Urea Nitrogen 8 mg/dL (9-20); Calcium 9.7 mg/dL (8.4-10.2); Carbon Dioxide 27 mmol/L (22-30); Chloride 104 mmol/L (98-107); Glucose 92 mg/dL (74-99); Non-African American GFR(CKD) >90 (>60 ml/min/1.73 sqM); Potassium 3.8 mmol/L (3.5-5.1); Sodium 140 mmol/L (137-145); Total Bilirubin 0.8 mg/dL (0.2-1.3); Total Protein 7.3 g/dL (6.3-8.2)
[2023-10-02 22:52] VITALS: BP 159/109; PULSE 73
[2023-10-03 00:05] LABS: Appearance,Urine Clear (Clear); Bilirubin,Urine Negative (Negative); Blood,Urine Negative (Negative); Color,Urine Yellow; Glucose,Urine (UA) Negative (Negative); Ketones,Urine Negative (Negative); Leukocyte Esterase,Urine Negative (Negative); Nitrite,Urine Negative (Negative); PH, Urine 5.5 (5.0-8.0); Protein,Urine Trace (Negative); Specific Gravity,Urine 1.025 (1.001-1.035); Urobilinogen,Urine <2.0 mg/dL (<2.0)
--- NOTE | 2023-10-03 00:09 | CT ---
EXAM: CT Abdomen and Pelvis With Intravenous Contrast CLINICAL HISTORY: RLQ pain TECHNIQUE: Axial computed tomography images of the abdomen and pelvis with intravenous contrast. CTDI is 16.13 mGy and DLP is 878 mGy-cm. This CT exam was performed using one or more of the following dose reduction techniques: automated exposure control, adjustment of the mA and/or kV according to patient size, and/or use of iterative reconstruction technique. COMPARISON: Renal ultrasound 09/09/2023, abdominal ultrasound 12/26/2018.. FINDINGS: Lung bases: Unremarkable. No mass. No consolidation. ABDOMEN: Liver: Enlarged 18.7 cm length and hypodense/fatty. Small scattered subcentimeter hypodensities too small characterize. Gallbladder and bile ducts: Contracted with nonspecific wall thickening. Probable small noncalcified gallstones or sludge balls. No calcified stones. No ductal dilation. Pancreas: Unremarkable. No mass. No ductal dilation. Spleen: Unremarkable. No splenomegaly. Adrenals: Unremarkable. No mass. Kidneys and ureters: Unremarkable. No solid mass. No hydronephrosis. Stomach and bowel: Small hiatal hernia. No obstruction or ileus. Diffuse left and sigmoid colon wall thickening with mild surrounding infiltration consistent with a colitis. No evidence for diverticulitis. PELVIS: Appendix: Appendix not identified. No secondary evidence for appendicitis. Bladder: Contracted. No mass. Reproductive: Uterus and ovaries are grossly unremarkable. ABDOMEN and PELVIS: Intraperitoneal space: No free air. No free fluid. Bones/joints: No acute fracture. Soft tissues: Unremarkable. Vasculature: Unremarkable. No abdominal aortic aneurysm. Lymph nodes: Unremarkable. No enlarged lymph nodes. IMPRESSION: Diffuse left and sigmoid colon wall thickening with mild surrounding infiltration consistent with a nonspecific colitis. No evidence for diverticulitis. Appendix not identified. No secondary evidence for appendicitis. Enlarged fatty liver. Contracted with nonspecific wall thickening. Probable small noncalcified gallstones or sludge balls. No calcified stones. No ductal dilation. Correlation with the right upper and ultrasound is recommended when clinically appropriate.
[2023-10-03] MEDS: AMOXIC-POT CLAV 875-125MG 1 EACH TAB PO STA (01:18)
== END 2023-10-03 01:20 | disposition home or self-care (01) ==
LOC: EC 18:19
DX: K52.9 Noninfective gastroenteritis and colitis, unspecified (principal); K21.9 Gastro-esophageal reflux disease without esophagitis; Z79.899 Other long term (current) drug therapy
CPT/HCPCS: 36415; 80053; 83605; 85025; 74177; 99284; Q9967; 81003